=== PATIENT | female | born 1980 | race Caucasian/White ===

== ENCOUNTER 2023-04-13 20:08 | Emergency (ER) | payer OTHER, SELFPAY ==
[2023-04-13 20:21] VITALS: BP 118/82; PULSE 84; RESP 16; TEMP 36.4; O2SAT 95; BMI 31.3
--- NOTE | 2023-04-13 20:32 | ED_ITS ---
HPI - General Adult General Chief complaint: GI Bleed Stated complaint: BM straight blood. feels unwell Time Seen by Provider: 04/13/23 20:11 History of Present Illness HPI narrative: Patient here after having bright red blood/diarrhea stool about an hour ago. Feels nauseated, foggy, lightheaded. Had colonoscopy in May 2022 and polyps removed at that time as well as in July 2022 per her report. 43-year-old woman presenting to the emergency department with concern of bright red blood per rectum. Admittedly has been having unknown settled abdomen/stomach over the course the day. Is feeling a little bit nauseated. This evening about an hour and half prior to arrival just suddenly had to go the bathroom. Head diarrheal bowel movement and noticed a lot of blood in the toilet bowl. No clots noted. Does not know if she has hemorrhoids. Primary complaint at this point is sense of fullness in the low abdomen and nausea. Also feeling little lightheaded. Did have a colonoscopy, screening, May of 2022 with polypectomy. Apparently benign. No travel though apparently to [facility] in [place] about a month ago. Past medical/surgical includes 2 C sections. Related Data Home Medications Medication Instructions Recorded Confirmed fluoxetine 20 mg capsule 20 mg PO DAILY 10/25/22 10/25/22 Allergies Allergy/AdvReac Type Severity Reaction Status Date / Time latex Allergy Unknown Verified 02/07/23 11:26 Milk Containing Products AdvReac Intermediate Verified 04/13/23 20:26 (Dairy) Review of Systems Status of ROS: Reports: 6 or more systems reviewed and unremarkable except as noted in History and below PFSH PFS Medical History Chronic neck pain (08/08/12) ?M54.2 - Cervicalgia (ICD-10) ?G89.29 - Other chronic pain (ICD-10) Surgical History History of endometrial ablation ?Z98.890 - Other specified postprocedural states (ICD-10) Hx of section ?Z98.891 - History of uterine scar from previous surgery (ICD-10) Social History Smoking Status: Never smoker Non-prescribed substance use: denies use Exam Narrative: Exam Narrative: Pleasant. Looks is a feels a little uncomfortable. Brow is furrowed in discomfort. She is breathing easily. Oropharynx is moist. Lungs appear to be clear. Heart in regular rate and rhythm without murmur or gallop. Abdomen present but diminished bowel sounds. She is not tympanitic to palpation of the abdomen. Abdomen is soft. No masses appreciated. Uncomfortable though not with significant pain to palpation across the low abdomen/suprapubic area. Seems full here. She is well-perfused peripherally. Extremities are without edema. Returns security strategist for anoscopy exam. Anal tissue demonstrates small non thrombosed hemorrhoidal tissue at 6p. Placement of anoscope does not show active bleeding though some mildly inflamed would look to be internal hemorrhoidal tissue. Trace amount of light brown stool at the end of the anoscope. Const: Vital Signs, click to edit/add: Vital Signs - 24 hr 04/13/23 20:21 04/13/23 23:28 Temperature 97.6 F 97.6 F Pulse Rate [Right Pulse Oximeter] 84 84 Respiratory Rate 16 16 Blood Pressure [Ri ght Upper Arm] 118/82 105/64 Pulse Oximetry 95 96 Oxygen Delivery Me thod Room Air Documenting provider has reviewed patient's vital signs: yes Course Vital Signs Vital signs: Initial Vital Signs Temperature 97.6 F 04/13/23 20:21 Temperature Source Temporal Artery Scan 04/13/23 20:21 Pulse Rate 84 04/13/23 20:21 Pulse Rhythm Regular 04/13/23 20:21 Respiratory Rate 16 04/13/23 20:21 Blood Pressure 118/82 04/13/23 20:21 Blood Pressure Mean 94 04/13/23 20:21 Blood Pressure Position Sitting 04/13/23 20:21 Pulse Oximetry 95 04/13/23 20:21 Oxygen Delivery Method Room Air 04/13/23 20:21 Vital Signs Temperature 97.6 F 04/13/23 20:21 Pulse Rate 84 04/13/23 20:21 Respiratory Rate 16 04/13/23 20:21 Blood Pressure 118/82 04/13/23 20:21 Pulse Oximetry 95 04/13/23 20:21 Oxygen Delivery Method Room Air 04/13/23 20:21 Temperature 97.6 F 04/13/23 23:28 Pulse Rate 84 04/13/23 23:28 Respiratory Rate 16 04/13/23 23:28 Blood Pressure 105/64 04/13/23 23:28 Pulse Oximetry 96 04/13/23 23:28 Oxygen Delivery Method Room Air 04/13/23 20:21 Medications Administered Medications: Discontinued Medications Generic Name Dose Route Start Last Admin Trade Name Jose Elias PRN Reason Stop Dose Admin Sodium Chloride 1,000 mls @ 1,000 mls/hr 04/13/23 20:52 04/13/23 22:37 0.9 % Sodium Chloride 1000 Ml IV 04/13/23 21:51 Infused .Q1H ONE Infusion Metoclopramide HCl 10 mg/ 102 mls @ 306 mls/hr 04/13/23 20:52 04/13/23 21:59 Sodium Chloride IVPB 04/13/23 20:53 Infused ONCE ONE Infusion Medical Decision Making MDM Narrative Medical decision making narrative: This may be an evolving colitis. Her discomfort and nausea is concerning for repeat episode. Possible diverticulitis. Do not see colonoscopy report at this time. Possible in internal hemorrhoids had bled and now temporarily resolved. Urinary retention? IV will be established. Notes worsening nausea typically with Zofran says given Reglan piggyback. IV fluids. Anticipate monitoring for repeat hemoglobin. Check baseline labs. Clarified later that following May 2022 colonoscopy, did have thrombosed hemorrhoid and had excision done in July 2022. Labs ultimately were reassuring. Minimal elevation of transaminases which I might attribute to evolving ?stomach bug? or hepatic steatosis? CT abdomen and pelvis reviewed by me, without acute abnormalities. Radiology read noting it to be unremarkable. ?Tiny fat containing umbilical hernia? Overall she was improved. No further bleeding events. See patient discharge plan Medical Records Medical records reviewed: Yes I reviewed the patient's medical records Lab Data Lab results reviewed: Yes I reviewed the patient's lab results Labs: Lab Results 04/13/23 04/13/23 04/13/23 Range/Units 19:28 19:28 19:28 WBC 5.83 (4.50-11.00) K/uL RBC 4.91 (4.00-5.20) m/uL Hgb 14.1 (12.0-16.0) gm/dL Hct 41.6 (33.0-51.0) % MCV 85 (80-100) fL MCH 29 (26-34) pg MCHC 34 (32-36) gm/dL RDW Coeff of Mahesh 12.1 (11.5-15.5) % Plt Count 273 (140-440) K/uL Neut % (Auto) 53.9 (42.0-72.0) % Lymph % (Auto) 35.5 (20-44) % [place] % (Auto) 6.3 (0.0-11.0) % Eos % (Auto) 3.8 (0.0-7.0) % Baso % (Auto) 0.3 (0.0-3.0) % Neut # (Auto) 3.14 (1.7-7.0) K/uL Lymph # (Auto) 2.07 (0.90-2.90) K/uL [place] # (Auto) 0.40 (0.00-0.90) K/UL Eos # (Auto) 0.22 (0.00-0.50) K/uL Baso # (Auto) 0.02 (0.00-0.30) K/uL Abs Immat Gran (auto) 0.01 (0.00-0.30) K/uL Imm/Tot Granulo (auto) 0.2 % Sodium 140 (135-149) mmol/L Potassium 3.5 L (3.6-5.1) mmol/L Chloride 106 (96-114) mmol/L Carbon Dioxide 24 (20-32) mmol/L Anion Gap 10 (7-15) mEq/L BUN 10 (5-24) mg/dL Creatinine 0.7 (0.5-1.5) mg/dL Estimated Creat Clear 102.85 Estimated GFR 111 ml/min Glucose 83 (60-115) mg/dL Calcium 9.5 (8.4-10.6) mg/dL Total Bilirubin 0.4 Cancelled (0.1-1.5) mg/dL Direct Bilirubin 0.0 Cancelled (0.0-0.5) mg/dL AST 37 H (12-35) U/L ALT (4-35) U/L Alkaline Phosphatase (40-150) U/L C-Reactive Protein (0.5-1.0) mg/dL Total Protein (6.0-8.3) g/dL Albumin (3.3-5.0) g/dL HCG, Qual (Negative) Urine Color (Yellow) Urine Appearance (Clear) Urine pH (5.0-8.5) Ur Specific [place] (1.000-1.030) Urine Protein (Negative) Urine Glucose (UA) (Negative) Urine Ketones (Negative) Urine Blood (Negative) Urine Nitrite (Negative) Urine Bilirubin (Negative) Urine Urobilinogen (0.2-1.0) Ur Leukocyte Esterase (Negative) Urine RBC (0-2) Urine WBC (0-5) Ur Squamous Epith Cells (None-Few) Urine Bacteria (None) 04/13/23 04/13/23 04/13/23 Range/Units 19:28 19:28 19:28 WBC (4.50-11.00) K/uL RBC (4.00-5.20) m/uL Hgb (12.0-16.0) gm/dL Hct (33.0-51.0) % MCV (80-100) fL MCH (26-34) pg MCHC (32-36) gm/dL RDW Coeff of Mahesh (11.5-15.5) % Plt Count (140-440) K/uL Neut % (Auto) (42.0-72.0) % Lymph % (Auto) (20-44) % [place] % (Auto) (0.0-11.0) % Eos % (Auto) (0.0-7.0) % Baso % (Auto) (0.0-3.0) % Neut # (Auto) (1.7-7.0) K/uL Lymph # (Auto) (0.90-2.90) K/uL [place] # (Auto) (0.00-0.90) K/UL Eos # (Auto) (0.00-0.50) K/uL Baso # (Auto) (0.00-0.30) K/uL Abs Immat Gran (auto) (0.00-0.30) K/uL Imm/Tot Granulo (auto) % Sodium (135-149) mmol/L Potassium (3.6-5.1) mmol/L Chloride (96-114) mmol/L Carbon Dioxide (20-32) mmol/L Anion Gap (7-15) mEq/L BUN (5-24) mg/dL Creatinine (0.5-1.5) mg/dL Estimated Creat Clear Estimated GFR ml/min Glucose (60-115) mg/dL Calcium (8.4-10.6) mg/dL Total Bilirubin (0.1-1.5) mg/dL Direct Bilirubin (0.0-0.5) mg/dL AST Cancelled (12-35) U/L ALT 37 H Cancelled (4-35) U/L Alkaline Phosphatase 60 Cancelled (40-150) U/L C-Reactive Protein < 0.5 L (0.5-1.0) mg/dL Total Protein 7.7 (6.0-8.3) g/dL Albumin (3.3-5.0) g/dL HCG, Qual (Negative) Urine Color (Yellow) Urine Appearance (Clear) Urine pH (5.0-8.5) Ur Specific [place] (1.000-1.030) Urine Protein (Negative) Urine Glucose (UA) (Negative) Urine Ketones (Negative) Urine Blood (Negative) Urine Nitrite (Negative) Urine Bilirubin (Negative) Urine Urobilinogen (0.2-1.0) Ur Leukocyte Esterase (Negative) Urine RBC (0-2) Urine WBC (0-5) Ur Squamous Epith Cells (None-Few) Urine Bacteria (None) 04/13/23 04/13/23 04/14/23 Range/Units 19:28 19:28 00:02 WBC (4.50-11.00) K/uL RBC (4.00-5.20) m/uL Hgb (12.0-16.0) gm/dL Hct (33.0-51.0) % MCV (80-100) fL MCH (26-34) pg MCHC (32-36) gm/dL RDW Coeff of Mahesh (11.5-15.5) % Plt Count (140-440) K/uL Neut % (Auto) (42.0-72.0) % Lymph % (Auto) (20-44) % [place] % (Auto) (0.0-11.0) % Eos % (Auto) (0.0-7.0) % Baso % (Auto) (0.0-3.0) % Neut # (Auto) (1.7-7.0) K/uL Lymph # (Auto) (0.90-2.90) K/uL [place] # (Auto) (0.00-0.90) K/UL Eos # (Auto) (0.00-0.50) K/uL Baso # (Auto) (0.00-0.30) K/uL Abs Immat Gran (auto) (0.00-0.30) K/uL Imm/Tot Granulo (auto) % Sodium (135-149) mmol/L Potassium (3.6-5.1) mmol/L Chloride (96-114) mmol/L Carbon Dioxide (20-32) mmol/L Anion Gap (7-15) mEq/L BUN (5-24) mg/dL Creatinine (0.5-1.5) mg/dL Estimated Creat Clear Estimated GFR ml/min Glucose (60-115) mg/dL Calcium (8.4-10.6) mg/dL Total Bilirubin (0.1-1.5) mg/dL Direct Bilirubin (0.0-0.5) mg/dL AST (12-35) U/L ALT (4-35) U/L Alkaline Phosphatase (40-150) U/L C-Reactive Protein (0.5-1.0) mg/dL Total Protein Cancelled (6.0-8.3) g/dL Albumin 4.5 Cancelled (3.3-5.0) g/dL HCG, Qual Negative (Negative) Urine Color Yellow (Yellow) Urine Appearance Clear (Clear) Urine pH 6.5 (5.0-8.5) Ur Specific [place] 1.015 (1.000-1.030) Urine Protein Negative (Negative) Urine Glucose (UA) Negative (Negative) Urine Ketones Negative (Negative) Urine Blood Negative (Negative) Urine Nitrite Negative (Negative) Urine Bilirubin Negative (Negative) Urine Urobilinogen 0.2 (0.2-1.0) Ur Leukocyte Esterase Negative (Negative) Urine RBC 0-2 (0-2) Urine WBC 0-2 (0-5) Ur Squamous Epith Cells Few (None-Few) Urine Bacteria Few A (None) Discharge Plan Discharge Clinical Impression: Diarrhea, Internal hemorrhoids, Abdominal discomfort, Bright red blood per rectum Patient Disposition: Home, Self-Care Condition: Improved Additional Instructions: I'm happy you are feeling better. Consider slow advance of diet over the next 24-36 hours. Diluted juices, soup broth, rice, toast, crackers. Your transaminases (liver enzymes) were only barely elevated. Your pain was not in the area of your liver or gallbladder however. These can go up in the setting of stomach bugs or even a glass of wine the night before. Return for increasing blood/bleeding particularly associated with clots, marked increase in abdominal pain, associated fever. Prescriptions: No Action fluoxetine 20 mg capsule 20 mg PO DAILY Follow Up/Referrals: Provider,Not a Local [Primary Care Provider] - Stand Alone Forms: [facility] Info Instructions
--- NOTE | 2023-04-13 21:14 | CRLHL7_ITS ---
For Patients: As a result of the Century Cures Act, medical imaging exams and procedure reports are released immediately into your electronic medical record. You may view this report before your referring provider. If you have questions, please contact your health care provider. INDICATION: Rectal bleeding, diarrhea. TECHNIQUE: CT abdomen and pelvis acquired with 100 cc Omnipaque 350 IV contrast. COMPARISON: None. FINDINGS: Lower chest: Scattered atelectasis. Liver: Unremarkable. Normal in size and attenuation. No suspicious masses. Gallbladder and bile ducts: Unremarkable. No stones or inflammation. No biliary dilatation. Pancreas: Unremarkable. No mass or inflammation. Spleen: Unremarkable. Normal in size. No masses. Adrenal glands: Unremarkable. No nodules. Kidneys: Unremarkable. No suspicious masses, stones, or hydronephrosis. GI tract: Unremarkable. Normal in caliber. No sign of mass or inflammation. Normal appendix. Vasculature: Abdominal aorta is normal in caliber. Mesenteric arteries are patent. Lymph nodes: No lymphadenopathy. Peritoneum/Abdominal Wall: Tiny fat containing umbilical hernia. No sign of mass or infiltration. No free air or significant free fluid. Pelvis: Unremarkable. Bones: Unremarkable for age. IMPRESSION: No acute intra-abdominal/pelvic abnormality. Please note that all CT scans at this facility use dose modulation, iterative reconstruction, and/or weight-based dosing when appropriate to reduce radiation dose to as low as reasonably achievable. Dictated by Armand Sanchez MD @ 04/13/2023 11:30:16 PM (Electronically Signed)
[2023-04-13] MEDS: 0.9 % SODIUM CHLORIDE 1000 ml 1,000 ML IV (21:30)
[2023-04-13 21:34] LABS: Basophils Absolute Auto 0.02 K/uL (0.00-0.30); Basophils Percent Auto 0.3 % (0.0-3.0); Eosinophils Absolute Auto 0.22 K/uL (0.00-0.50); Eosinophils Percent Auto 3.8 % (0.0-7.0); Hematocrit 41.6 % (33.0-51.0); Hemoglobin* 14.1 gm/dL (12.0-16.0); Immature Granulocytes Abs Auto 0.01 K/uL (0.00-0.30); Immature Granulocytes Pct Auto 0.2 %; Lymphocytes Absolute Auto 2.07 K/uL (0.90-2.90); Lymphocytes Percent Auto 35.5 % (20-44); Mean Corpuscular HGB Conc 34 gm/dL (32-36); Mean Corpuscular Hemoglobin 29 pg (26-34); Mean Corpuscular Volume 85 fL (80-100); Monocytes Percent Auto 6.3 % (0.0-11.0); Neutrophils Absolute Auto 3.14 K/uL (1.7-7.0); Neutrophils Percent Auto 53.9 % (42.0-72.0); Platelet Count* 273 K/uL (140-440); RDW Coefficient of Variation % 12.1 % (11.5-15.5); Red Blood Count 4.91 m/uL (4.00-5.20); White Blood Count* 5.83 K/uL (4.50-11.00)
[2023-04-13] MEDS: METOCLOPRAMIDE HCL 10 MG in 0.9 % SODIUM CHLORIDE 100 ml 100 ML 306 MG IVPB (21:40)
[2023-04-13 21:43] LABS: Slide Review Reflex No
[2023-04-13 21:53] LABS: Albumin* 4.5 g/dL (3.3-5.0); Chloride* 106 mmol/L (96-114)
[2023-04-13 21:54] LABS: Potassium* 3.5 mmol/L (3.6-5.1); Sodium* 140 mmol/L (135-149)
[2023-04-13 21:56] LABS: Creatinine* 0.7 mg/dL (0.5-1.5); Est. Creatinine Clearance* 102.85; Estimated Glomerular Filt Rate 111 ml/min
[2023-04-13 21:57] LABS: Alanine Aminotransferase* 37 U/L (4-35); Alkaline Phosphatase* 60 U/L (40-150); Anion Gap 10 mEq/L (7-15); Aspartate Amino Transferase* 37 U/L (12-35); Bilirubin Total* 0.4 mg/dL (0.1-1.5); Blood Urea Nitrogen* 10 mg/dL (5-24); Calcium* 9.5 mg/dL (8.4-10.6); Carbon Dioxide* 24 mmol/L (20-32); Glucose* 83 mg/dL (60-115); Total Protein* 7.7 g/dL (6.0-8.3)
[2023-04-13 22:09] LABS: C Reactive Protein* < 0.5 mg/dL (0.5-1.0)
[2023-04-13 22:13] LABS: HCG Qualitative Serum* Negative (Negative)
[2023-04-13 23:28] VITALS: BP 105/64; PULSE 84; RESP 16; TEMP 36.4; O2SAT 96
[2023-04-14 00:10] LABS: Appearance Urine Clear (Clear); Bilirubin Urine Negative (Negative); Blood Urine Negative (Negative); Color Urine Yellow (Yellow); Glucose Urine Negative (Negative); Ketones Urine Negative (Negative); Leukocyte Esterase Urine Negative (Negative); Nitrite Urine Negative (Negative); Protein Urine Negative (Negative); Specific Gravity Urine 1.015 (1.000-1.030); Urobilinogen Urine 0.2 (0.2-1.0); pH Urine 6.5 (5.0-8.5)
[2023-04-14 00:21] LABS: Bacteria Urine Few; RBC Urine 0-2 (0-2); Squamous Epithelial Cell Urine Few (None-Few); WBC Urine 0-2 (0-5)
== END 2023-04-14 00:37 | disposition home or self-care (01) ==
PROVIDERS: Emergency Provider Family Medicine
DX: R19.7 Diarrhea, unspecified (principal); K64.8 Other hemorrhoids; R10.9 Unspecified abdominal pain; K62.5 Hemorrhage of anus and rectum
CPT/HCPCS: 36415; 51798; 74177; 80048; 80076; 81001; 84703; 85025; 86140; 87086; 96365; 99284; 99285; J2765; J7030; Q9967

== ENCOUNTER 2024-07-20 21:43 | Emergency (ER) | payer BC, SELFPAY ==
--- OUTSIDE RECORDS SUMMARY | 2024-07-20 21:45 | XMS_ITS | Clinical Summary ---
Author Organization [facility] Address [address] [place] [address] Care Team Providers Care Wheel Assembler Name Role Phone Unavailable Primary Care Provider Unavailabl e Source Comments Patient records contain information from all sites at [facility]. For routine questions regarding patient records, call [phone] during business hours, M-F 8:00 AM - 5:00 PM Central Time. Record requests for emergency care only can be directed to [phone] at any time.[facility] Allergies Active Allergy Reactions Criticality Noted Date Comments Latex Itching,Rash Low 03/17/2011 Medications FLUoxetine (PROzac) 40 mg capsule Take 40 mg by mouth daily. Active Active Problems Problem Noted Date Diagnosed Date Hemorrhoids 06/29/2023 Social History Tobacco Use Types Packs/Day Years Used Date Smoking Tobacco: Never Smokeless Tobacco: Never Tobacco Cessation:Counseling Given: Not Answered [facility] Utilities Answer Date Recorded In the past 12 months has [facility] Local Dirt, gas, oil, or water [employer] threatened to shut off services in your home? No 06/27/2023 Exercise Vital Sign Answer Date Recorde d On average, how many days pe r week do you engage in moderate to strenuous exercise (like a brisk walk)? 5 days 06/27/2023 On average, how many minutes do you engage in exercise at this level? 30 min 06/27/2023 Hunger Vital Sign Answer Date Recorded Within the past 12 months, y ou worried that your food would run out before you got the money to buy more. Never true 06/27/19 24 Within the past 12 months, t he food you bought just didn't last and you didn't have money to get more. Never true 06/27/2023 PRAPARE - Transportation Answer Date Re corded In the past 12 months, has l ack of transportation kept you from medical appointments or from getting medications? No 06/08 In the past 12 months, has l ack of transportation kept you from meetings, work, or from getting things needed for daily living? No 06/27/2023 Nutrition Answer Date Recorded Nutrition: EVOO Fat Source Unknown 06/27 On average, how many serving s of fruits and vegetables do you eat per day (serving size is equal to 1 cup or approximately the size of a tennis ball)? 3-5 06/27/2023 Dental Answer Date Recorded Dental: Regular Dentist Yes 06/27/19 Employment Answer Date Recorded Employment status Employed and actively working without restrictions 06/27/2023 Housing Stability Answer Date Recorded What is your living situation today? I have a [facility] place to live 06/27/2023 Comments Unknown Sex and Gender Information Value Date Recorded Sex Assigned at Female 06/27/2023 10:37 PM EPIC CADENCE ANALYST Legal Sex Female 11:49 PM EPIC CADENCE ANALYST Gender Identity Female 06/27/2023 10:37 PM EPIC CADENCE ANALYST Sexual Orientation Straight 06/27/2023 10 :37 PM EPIC CADENCE ANALYST Last Filed Vital Signs Vital Sign Reading Time Taken Comments Blood Pressure 120/83 06/28/2023 10:24 AM EPIC CADENCE ANALYST Pulse 86 06/28/2023 10:24 AM EPIC CADENCE ANALYST Temperature 36.3 C (97.3 F) 06/28/2023 10:24 AM EPIC CADENCE ANALYST Respiratory Rate - - Oxygen Saturation - - Inhaled Oxygen Concentration - - Weight 91.2 kg (201 lb 1 oz) 06/28/2023 10:24 AM EPIC CADENCE ANALYST Height 171.4 cm (5' 7.48) 06/28/2023 10:[address] Body Mass Index 31.04 06/28/2023 10:24 AM EPIC CADENCE ANALYST Plan of Treatment Health Maintenance Due Date Last Done Comments Cervical/Vaginal Cancer Screening 1982 HIV Screening 1982 Hepatitis C Screening 1982 Lipid (Cholesterol) Screening 1982 Hepatitis B Vaccines (1 of 3 - 19+ 3-dose series) 2001 Mammogram 04/03/2016 04/03/2015 DTaP,Tdap,and Td Vaccines (3 - Td or Tdap) 11/11/2022 11/11/2012, 03/20/2011 COVID-19 Vaccine (3 - 2023-2 5 season) 2024 04/07/2021, 03/08/2021 Influenza Vaccine (#1) 2024 8, 06/11/2017, 03/03/2013 Depression Screening (Annual PHQ-2) 06/07/2024 HPV Vaccines Aged Out No longer eligi ble based on patient's age to complete this topic IPV Vaccines Aged Out No longer eligi ble based on patient's age to complete this topic Pneumococcal vaccine (0-49 years) Aged Out No longer eligible b ased on patient's age to complete this topic Insurance [place] [id number]
--- OUTSIDE RECORDS SUMMARY | 2024-07-20 21:45 | XMS_ITS | Encounter Summary ---
Author Organization [facility] Address [address] [place] [id number] Phone Care Team Providers Care Network Communications Engineer Name Role Phone Unavailable Primary Care Provider Unavailabl e Reason for Referral * Ancillary Services (Urgent) - Closed Specialty Diagnoses / Procedures Referred By Contac ashley Referred To Contact Radiology Diagnoses Acute cough Procedures XR CHEST 2 VIEWS Ken Ragsdale PA-C [address] [place] [id number] Phone: tel: fax: Referral ID Status Reason Start Date Expiration Date Visits Re quested Visits Authorized [id number] Closed 07/01/2024 09/29/[address] ORIENTED DEVELOPER Reason for Visit * Ancillary Services (Urgent) - Closed Specialty Diagnoses / Procedures Referred By Isidra ramirez Referred To Contact Radiology Diagnoses Acute cough Procedures XR CHEST 2 VIEWS Ken Ragsdale PA-C [address] [place] [id number] Phone: tel: fax: Referral ID Status Reason Start Date Expiration Date Visits Re quested Visits Authorized [id number] Closed 07/01/2024 09/29/2025 1 1 Encounter Details Date Type Department Care Team (Latest Contact Info) Description 07/01/2024 1:27 PM OBJECT ORIENTED DEVELOPER - 07/01/2024 11:59 PM OBJECT ORIENTED DEVELOPER Hospital Encounter [facility] RADIOLOGY [address] [place] [phone] Ken Ragsdale PA-C [address] [place] [phone] Acute cough Discharge Disposition: Discharged Social History Tobacco Use Types Packs/Day Years Used Date Smoking Tobacco: Never Smokeless Tobacco: Never PHQ-2 Answer Date Recorded PHQ-2 Total 0 07/01/2024 Comments Unknown Sex and Gender Information Value Date Recorded Sex Assigned at Not on file Legal Sex Female 12:08 PM OBJECT ORIENTED DEVELOPER Gender Identity Not on file Sexual Orientation Not on file documented as of this encounter Medications at Time of Discharge FLUoxetine (PROzac) 40 MG capsule Take 40 mg by mouth one time a day. amoxicillin-clav ulanate (AUGMENTIN) 875-125 MG oral tabletIndication s:Infection Take 1 Tablet by mouth two times a day with meals for 7 days. Indications: Infection 14 Tablet 07/01/2024 documented as of this encounter Discharge Disposition Disposition Code Departure Means Destination Discharged documented in this encounter Plan of Treatment Not on file documented as of this encounter Procedures Procedure Name Priority Date/Time Associated Diagnosis Comments XR CHEST 2 VIEWS STAT 07/01/2024 1:47 PM OBJECT ORIENTED DEVELOPER Acute cough documented in this encounter Results * XR CHEST 2 VIEWS (07/01/2024 1:47 PM OBJECT ORIENTED DEVELOPER) Anatomical Region Laterality Modality Chest Radiographic Kirstne ging 07/01/2024 1:47 PM OBJECT ORIENTED DEVELOPER Narrative 07/01/2024 2:22 PM OBJECT ORIENTED DEVELOPER This document is currently in Final Status Exam XR CHEST 2 VIEWS HISTORY: cough; FINDINGS: Heart size is normal. Lungs are clear. Electronically Signed: Fred Frost MD 07/01/2024 2:22 PM Procedure Note Fred Frost MD - 07/01/2024 This document is currently in Final Status Exam XR CHEST 2 VIEWS HISTORY: cough; FINDINGS: Heart size is normal. Lungs are clear. Electronically Signed: Fred Frost MD 07/01/2024 2:22 PM Ken Ragsdale PA-C DIAGNOSTIC IMAGING [facility] Final Result documented in this encounter Visit Diagnoses Diagnosis Acute cough documented in this encounter
--- OUTSIDE RECORDS SUMMARY | 2024-07-20 21:45 | XMS_ITS | Clinical Summary ---
Author Organization [facility] Address [address] [address] Phone Care Team Providers Care Flake [employer] Name Role Phone Unavailable Primary Care Provider Unavailabl e Allergies Active Allergy Reactions Criticality Noted Date Comments Latex Pruritis,RASH Medium 03/17/2011 Prednisone Hives High 07/01/2024 Medications FLUoxetine (PROzac) 40 MG capsule Take 40 mg by mouth one time a day. Active amoxicillin-cla vulanate (AUGMENTIN) 875-125 MG oral tabletIndicatio ns:Infection Take 1 Tablet by mouth two times a day with meals for 7 days. Indications: Infection 14 Tablet 07/08/19 Active Problems No known active problems Encounters Date Type Department Care Team Description 07/01/2024 1:27 PM SEMICONDUCTOR ASSEMBLER - 07/01/2024 11:59 PM SEMICONDUCTOR ASSEMBLER Hospital Encounter [facility] [address] [place] [phone] Ken Ragsdale PA-C Acute cough Discharge Disposition: Discharged 07/01/2024 12:20 PM SEMICONDUCTOR ASSEMBLER Office Visit [facility] [address] [place] [phone] Ken Ragsdale PA-C Acute cough (Primary Dx) 07/01/2024 Travel from Last 3 Months Social History Tobacco Use Types Packs/Day Years Used Date Smoking Tobacco: Never Smokeless Tobacco: Never Tobacco Cessation:Counseling Given: Not Answered PHQ-2 Answer Date Recorded PHQ-2 Total 0 07/01/2024 Comments Unknown Sex and Gender Information Value Date Recorded Sex Assigned at Not on file Legal Sex Female 12:08 PM SEMICONDUCTOR ASSEMBLER Gender Identity Not on file Sexual Orientation Not on file Obstetrics History Last Filed Vital Signs Vital Sign Reading Time Taken Comments Blood Pressure 112/70 07/01/2024 12:40 PM SEMICONDUCTOR ASSEMBLER Pulse 78 07/01/2024 12:40 PM SEMICONDUCTOR ASSEMBLER Temperature 37.2 C (98.9 F) 07/01/2024 12:40 PM SEMICONDUCTOR ASSEMBLER Respiratory Rate 16 07/01/2024 12:40 PM SEMICONDUCTOR ASSEMBLER Oxygen Saturation 98% 07/01/2024 12:40 PM SEMICONDUCTOR ASSEMBLER Inhaled Oxygen Concentration - - Weight 88.7 kg (195 lb 8.8 oz) 07/01/2024 12:40 PM SEMICONDUCTOR ASSEMBLER Height - - Body Mass Index - - Plan of Treatment Health Maintenance Due Date Last Done Comments Cervical Cancer Screening 1982 Last pap w/ HPV Testing 1982 Last pap w/o HPV Testing 1982 MAMMO,SCREEN 1982 Hepatitis B Vaccine (Standin g Order) (1 of 3 - 19+ 3-dose series) 2001 PERTUSSIS (Standing Order) 2001 TETANUS (Standing Order) 2001 COVID-19 Vaccine (2023-2 5 season) 2024 Influenza Vaccine Seasonal (Standing Order) (#1) 2024 HPV Vaccine (Standing Order) Aged Out No longer eligible based on patient's age to complete this topic Pneumococcal/PCV20 Vaccine: Pediatrics (2-5 yrs) and At-Risk Patients (6-49 yrs) (Standing Order) Aged Out No longer eligible b ased on patient's age to complete this topic Procedures Procedure Name Priority Date/Time Associated Diagnosis Comments XR CHEST 2 VIEWS STAT 07/01/2024 1:47 PM SEMICONDUCTOR ASSEMBLER Acute cough STREP A, MOLECULAR DETECTION Routine 07/01/2024 1:33 PM SEMICONDUCTOR ASSEMBLER Acute cough from Last 3 Months Results * XR CHEST 2 VIEWS (07/01/2024 1:47 PM SEMICONDUCTOR ASSEMBLER) Anatomical Region Laterality Modality Chest Radiographic Kirsten ging 07/01/2024 1:47 PM SEMICONDUCTOR ASSEMBLER Narrative 07/01/2024 2:22 PM SEMICONDUCTOR ASSEMBLER This document is currently in Final Status [...] Fred Frost MD 07/01/2024 2:22 PM Ken NUNO DIAGNOSTIC IMAGING ORDE RABLES Final Result * STREP A, MOLECULAR DETECTION (07/01/2024 1:33 PM SEMICONDUCTOR ASSEMBLER) Streptococcus pyogenes (Group A Strep) Not Detected Not Detected 07/01/2024 2:06 PM SEMICONDUCTOR ASSEMBLER [facility] Swab STRUCTURE OF THROAT / Unknown Non-blood collection / Unknown 07/01/2024 1:33 PM SEMICONDUCTOR ASSEMBLER 07/01/2024 1:39 PM SEMICONDUCTOR ASSEMBLER Narrative [facility] - 07/01/2024 2:06 PM SEMICONDUCTOR ASSEMBLER Test results must be interpreted within the context of all relevant clinical and laboratory findings. Method Information This test uses the [employer]ep[employer] Xpert Xpress Strep A assay to detect Streptococcus pyogenes (Group A Beta-Hemolytic Streptococcus) DNA by real-time polymerase chain reaction (PCR) on the [employer] GeneXpert Instrument System. Ken NUNO MICROBIOLOGY - GENERAL ORDERABLES Final Result [facility] [address] [place] [address], [facility] from Last 3 Months Insurance BCBS OF [facility] Commercial Address: [facility] [address] [place] [address]
--- OUTSIDE RECORDS SUMMARY | 2024-07-20 21:45 | XMS_ITS | Clinical Summary ---
Author Organization [facility] Address [address] [place] [address] Care Team Providers Care Offset Machine Operator Name Role Phone Jaymie Burgos MD Primary Care Provider [phone] Allergies Active Allergy Reactions Criticality Noted Date Comments Latex Itching,Rash Low 03/17/2011 Medications Butalbital-APAP -Caffeine (FIORICET PO) Take 1-2 tablets by mouth every 4 hours as needed. Active VITAMINS PO Take 1 tablet by mouth. Active PREDNISONE PO Take 20 mg by mouth daily. 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) 01/23/2013 Labor and delivery, indication for care 12/26/19 13 S/P section 03/18/2011 Encounters Date Type Department Care Team Description 07/06/2024 8:15 AM AUTOMOTIVE BUYER - 07/06/2024 11:59 PM AUTOMOTIVE BUYER Hospital Encounter [facility] [address] [facility] [place] [phone] Vivian Cuevas, AGRONOMY ADVISOR MOLD CHANGER Pain of left breast Discharge Disposition: Home or Self Care 07/06/2024 8:13 AM AUTOMOTIVE BUYER - 07/06/2024 8:14 AM AUTOMOTIVE BUYER Hospital Encounter [facility] [address] [facility], [address] [place] [phone] Vivian Cuevas, AGRONOMY ADVISOR MOLD CHANGER Pain of left breast Discharge Disposition: Home or Self Care 07/06/2024 Travel 07/05/2024 Travel from Last 3 Months Immunizations Name Administration Dates Next Due TDAP (Adacel,Boostrix) 11/11/2012 TDAP Vaccine (Adacel) 03/20/2011 Social History Tobacco Use Types Packs/Day Years Used Date Smoking Tobacco: Never Alcohol Use Standard Drinks/Week Comments No 0 (1 standard drink = 0.6 oz pur e alcohol) Adolescent Education Answer Date Record ed Getting School Help Needed Not on file 02/26 Comments Unknown Sex and Gender Information Value Date Recorded Sex Assigned at Not on file Legal Sex Female 5:14 AM AUTOMOTIVE BUYER Gender Identity Not on file Sexual Orientation Not on file Last Filed Vital Signs Vital Sign Reading Time Taken Comments Blood Pressure 115/91 02/26/2022 8:50 PM CDT Pulse 65 02/26/2022 8:30 PM CDT Temperature 36.4 C (97.5 F) 02/26/2022 4:26 PM CDT Respiratory Rate 16 02/26/2022 7:00 PM CDT Oxygen Saturation 96% 02/26/2022 8:50 PM CDT Inhaled Oxygen Concentration - - Weight 96.2 kg (212 lb) 01/23/2013 6:15 AM CDT Height 170.2 cm (5' 7) 02/26/2022 4:26 PM CDT Body Mass Index 33.2 01/23/2013 6:15 AM CDT Plan of Treatment Health Maintenance Due Date Last Done Comments ADVANCE CARE PLANNING 1982 ANNUAL REVIEW OF HM ORDERS 1982 HIV SCREENING 1997 HEPATITIS B IMMUNIZATION (1 of 3 - 19+ 3-dose series) 2001 YEARLY PREVENTIVE VISIT 12/26/2020 12/27/2019 COVID-19 Vaccine (3 - Pfizer risk series) 05/05/2021 04/07/2021, 03/08/2021 LIPID 2022 DTAP/TDAP/TD IMMUNIZATION (3 - Td or Tdap) 11/11/2022 11/11/2012, 03/20/2011 PAP 12/26/2022 12/27/2019, 12/27/2019, 02/11/2007 INFLUENZA VACCINE (#1) 2024 8, 06/11/2017, 03/03/2013 PHQ-2 (once per calendar year) 2024 GLUCOSE 02/26/2025 02/26/2022, 01/26/2013 MAMMO SCREENING 07/06/2026 07/06/2024, 04/03/2015 ZOSTER IMMUNIZATION (1 of 2) 2032 HEPATITIS C SCREENING Completed 06/01/2003 HPV IMMUNIZATION Aged Out No longer e ligible based on patient's age to complete this topic MENINGITIS IMMUNIZATION Aged Out No l onger eligible based on patient's age to complete this topic Pneumococcal Vaccine: Pediatrics (0 to 5 Years) and At-Risk Patients (6 to 49 Years) Aged Out No longer eligible b ased on patient's age to complete this topic Procedures Procedure Name Priority Date/Time Associated Diagnosis Comments US BREAST LEFT LIMITED 1-3 QUADRANTS Routine 07/06/2024 8:51 AM AUTOMOTIVE BUYER Pain of left breast MA DIAGNOSTIC BILATERAL W/ RELL Routine 07/06/2024 8:39 AM AUTOMOTIVE BUYER Pain of left breast COMPREHENSIVE METABOLIC PANEL STAT 02/26/2022 4:32 PM CDT from Last 3 Months or Most Recently Relevant to Health Maintenance Results * US Breast Left (07/06/2024 8:51 AM AUTOMOTIVE BUYER) Anatomical Region Laterality Modality Breast Left Ultrasound Impressions 07/06/2024 9:13 AM AUTOMOTIVE BUYER IMPRESSION: BI-RADS CATEGORY: 1 - Negative. RECOMMENDED FOLLOW-UP: Routine yearly mammography beginning at age 40 or as discussed with your provider. Clinical follow-up is recommended, with management dependent on the results/findings of the physical examination. The results and recommendation were communicated to the patient at the conclusion of today's appointment. LORENA PARKER MD Narrative 07/06/2024 9:13 AM AUTOMOTIVE BUYER DIAGNOSTIC MAMMOGRAM, BILATERAL, DIGITAL w/CAD AND TOMOSYNTHESIS - 07/06/2024 8:39 AM ULTRASOUND LEFT BREAST HISTORY: Left breast pain. COMPARISON: Prior mammograms in 2014. BREAST DENSITY: The breasts are heterogeneously dense, which may obscure small masses. FINDINGS: No mammographic findings suspicious for malignancy. Targeted ultrasound evaluation of the left breast from 4:00 to 5:00 at the site of pain demonstrates no underlying sonographic abnormalities. Vivian Cuevas APRN, CNP [facility] US ORDERABLES Ed ited * MA Diagnostic Bilateral w/Rell (07/06/2024 8:39 AM AUTOMOTIVE BUYER) Anatomical Region Laterality Modality Breast Bilateral Mammography Impressions 07/06/2024 9:13 AM AUTOMOTIVE BUYER IMPRESSION: BI-RADS CATEGORY: 1 - Negative. RECOMMENDED FOLLOW-UP: Routine yearly mammography beginning at age 40 or as discussed with your provider. Clinical follow-up is recommended, with management dependent on the results/findings of the physical examination. The results and recommendation were communicated to the patient at the conclusion of today's appointment. LORENA PARKER MD Narrative 07/06/2024 9:13 AM AUTOMOTIVE BUYER DIAGNOSTIC MAMMOGRAM, BILATERAL, DIGITAL w/CAD AND TOMOSYNTHESIS - 07/06/2024 8:39 AM ULTRASOUND LEFT BREAST HISTORY: Left breast pain. COMPARISON: Prior mammograms in 2014. BREAST DENSITY: The breasts are heterogeneously dense, which may obscure small masses. FINDINGS: No mammographic findings suspicious for malignancy. Targeted ultrasound evaluation of the left breast from 4:00 to 5:00 at the site of pain demonstrates no underlying sonographic abnormalities. Vivian Cuevas APRN, CNP [facility] MAMMOGRAPHY ORDE FRIDALES Final Result * Comprehensive metabolic panel (02/26/2022 4:32 PM CDT) Sodium 137 133 - 144 mmol/L 02/26/2022 5:16 PM CDT LABORATORY Potassium 3.7 3.4 - 5.3 mmol/L 02/26/2022 5:16 PM CDT LABORATORY Chloride 107 94 - 109 mmol/L 02/26/2022 5:16 PM CDT LABORATORY Carbon Dioxide (CO2) 25 20 - 32 mmol/L 02/26/2022 5:16 PM CDT LABORATORY Anion Gap 5 3 - 14 mmol/L 02/26/2022 5:16 PM CDT LABORATORY Urea Nitrogen 9 7 - 30 mg/dL 02/26/2022 5:16 PM CDT LABORATORY Creatinine 0.61 0.52 - 1.04 mg/dL 02/26/2022 5:16 PM CDT LABORATORY Calcium 8.9 8.5 - 10.1 mg/dL 02/26/2022 5:16 PM CDT LABORATORY Glucose 99 70 - 99 mg/dL 02/26/2022 5:16 PM CDT LABORATORY Alkaline Phosphatase 52 40 - 150 U/L 02/26/2022 5:16 PM CDT LABORATORY AST 20 0 - 45 U/L 02/26/2022 5:16 PM CDT LABORATORY ALT 32 0 - 50 U/L 02/26/2022 5:16 PM CDT LABORATORY Protein Total 7.2 6.8 - 8.8 g/dL 02/26/2022 5:16 PM CDT LABORATORY Albumin 3.6 3.4 - 5.0 g/dL 02/26/2022 5:16 PM T LABORATORY Bilirubin Total 0.8 0.2 - 1.3 mg/dL 02/26/2022 5:16 PM T LABORATORY GFR Estimate >90 >60 mL/min/1.7 3m2 02/26/2022 5:16 PM [facility] Comment:Effective May 082020 eGFRcr in adults is calculated using the 2020 CKD-EPI creatinine equation which includes age and gender (Linsey et al., NEJM, DOI: 10.1056/SFKIxc3467330) Blood STRUCTURE OF RIGHT UPPER LIMB / Unknown Venipuncture / Unknown 02/26/2022 4:32 PM CDT 02/26/2022 4:40 PM CDT us Paul Rivas PA-C LAB - BLOOD ORDERABLES Final Re sult LABORATORY [facility] [address], [address] [place] [phone], [facility] [phone] from Last 3 Months or Most Recently Relevant to Health Maintenance Insurance BCBS OUT OF STATE BCBS OUT OF STATE Care Teams Offset Machine Operator Relationship Specialty Start Date End Date Jaymie Burgos MD [address] [place] [address] PCP - General supervisor telephone information 03/10/11
--- OUTSIDE RECORDS SUMMARY | 2024-07-20 21:45 | XMS_ITS | Clinical Summary ---
Author Organization [facility] Address [place], [place] [address] Care Team Providers Care Street Light Servicer Supervisor Name Role Phone Pcp, No Primary Care Provider Unavailabl e Allergies Active Allergy Reactions Criticality Noted Date Comments Latex Rash 09/30/2012 Medications eletriptan (RELPAX) 40 mg tablet TAKE 1 TABLET BY MOUTH IF HEADACHE RETURNS MAY REPEAT IN 2 HOURS. NO MORE THAN 2 DOSES WITHIN 24 HRS 6 03/25/2017 Active escitalopram oxalate (LEXAPRO) 5 mg tablet Take 5 mg by mouth once daily. 07/05/2017 Active Active Problems No known active problems Family History Medical History Relation Name Comments Good Health Brother Good Health Father Good Health Mother Good Health Sister Relation Name Status Comments Brother Father Mother Sister Social History Tobacco Use Types Packs/Day Years Used Date Smoking Tobacco: Never Smokeless Tobacco: Never Tobacco Cessation:Counseling Given: Yes Alcohol Use Standard Drinks/Week Comments Yes 1.7 (1 standard drink = 0.6 oz p ure alcohol) occas Comments No Sex and Gender Information Value Date Recorded Sex Assigned at Not on file Legal Sex Female 5:19 AM ELECTRONIC DRAFTER Gender Identity Not on file Sexual Orientation Not on file Obstetrics History Para Term AB IAB SAB Ectopic Multiple Livin g Live Births 1 Date Outcome GA Total Labor Labor/2nd/3rd Weight Sex Type Anes PTL Mckenna A1 A5 Name Clin Last Filed Vital Signs Vital Sign Reading Time Taken Comments Blood Pressure 110/72 09/08/2017 5:48 PM CDT Pulse 78 09/08/2017 5:48 PM CDT Temperature 37.1 C (98.8 F) 09/08/2017 5:48 PM CDT Respiratory Rate - - Oxygen Saturation 97% 09/08/2017 5:48 PM CDT Inhaled Oxygen Concentration - - Weight 85.4 kg (188 lb 3.2 oz) 09/08/2017 5:48 P M CDT Height 170 cm (5' 6.93) 05/18/2017 9:55 AM ELECTRONIC DRAFTER Body Mass Index 29.54 05/18/2017 9:55 AM ELECTRONIC DRAFTER Plan of Treatment Health Maintenance Due Date Last Done Comments Tdap 1993 HIV for age 15-65 1997 Tetanus booster 2002 Pap test for age 21-65 02/11/2010 7, 01/13/2005 BMI (ht and wt on same day) for age 18+ 05/18/2018 05/18/2017 Depression screening for age 12+ 05/18/2018 05/18/2017 COVID-19 vaccine series (2023- season) 2024 Influenza for age 9-49 02/06/2024 Hepatitis C screening for ag e 18-79 Completed 06/01/2003 Pneumococcal series for age 6-49 Aged Out No longer eligible b ased on patient's age to complete this topic Procedures Procedure Name Priority Date/Time Associated Diagnosis Comments HOSIERY MENDER THIN PREP PAP SCREEN IMAGED Routine 02/11/2007 2:31 PM CDT Acute Pelvic Inflammatory Disease ANTI HCV Routine 06/01/2003 9:46 AM ELECTRONIC DRAFTER from Last 3 Months or Most Recently Relevant to Health Maintenance Results * HOSIERY MENDER THIN PREP PAP SCREEN IMAGED (02/11/2007 2:31 PM CDT) CYTOLOGY CYTOPATHOLOGY REPORT [facility] Status: Final Report [id number] CLINICAL INFORMATION LMP : 01/2007 Previous Pap Date : UNSURE Previous PAP Dx : Negative for intraepithelial lesion or malignancy. Previous Goodyear/bx date : NO Previous Colposcopy/Bx: None Hormone Usage : None Menstrual Status : Irregular Periods Goodyear/Bx done today : No HPV Request : Reflex HPV test if PAP Dx ASCUS SPECIMEN SOURCE : Cervical/vaginal ThinPrep Vial, screening SPECIMEN ADEQUACY : Satisfactory for evaluation Endocervical component present. INTERPRETATION/RES ULT: Negative for intraepithelial lesion or malignancy. Non-Neoplastic Findings Reactive cellular changes (includes inflammatory, reactive And/or reparative changes). Cytology 1st Screener : lgb Signed by: Caleb Saldana M.D. This specimen was screened by the FDA approved ThinPrep Imaging System and manually reviewed. NOTE: The Pap test is a screening technique, not a diagnostic procedure. It is used primarily to screen for squamous cancers and precursor lesions. Published studies have shown that it is subject to both false negative and false positive results. The pap test should not be used as the sole means to diagnose or exclude pre-malignant and malignant lesions. COLLECTED: 02/11/07 ACCESSIONED: 02/11/07 SIGNED: 02/22/07 Interpreted at [facility] Cervical (Cervical) 02/11/2007 2:31 PM CDT 02/11/2007 2:30 PM CDT us Paul Nam MD PATHOLOGY/CYTOLOGY Final Result Performing Organization Address City/State/[facility] Co de Phone Number [facility] INTERNAL ZIP [address] [place] [phone] * ANTI HCV (06/01/2003 9:46 AM ELECTRONIC DRAFTER) ANTI HCV Non-reactiv e 06/01/2003 9:46 AM ELECTRONIC DRAFTER Narrative 11/15/2003 1:41 AM CDT Ordered by an unspecified provider. us Other Clinical Staff SEND OUTS Final Resul t from Last 3 Months or Most Recently Relevant to Health Maintenance [place] [address] Light Servicer Supervisor Relationship Specialty Start Date End Date Pcp, No . PCP - General 06/04/10
--- OUTSIDE RECORDS SUMMARY | 2024-07-20 21:46 | XMS_ITS | Encounter Summary ---
Author Organization [facility] Address [address] [place] [address]. [place] [address] Care Team Providers Care Nutrition Services Aide Name Role Phone Jaymie Burgos MD Primary Care Provider [phone] Encounter Details Date Type Department Care Team (Latest Contact Info) Description 07/05/2024 Travel Social History Tobacco Use Types Packs/Day Years Used Date Smoking Tobacco: Never Alcohol Use Standard Drinks/Week Comments No 0 (1 standard drink = 0.6 oz pur e alcohol) Adolescent Education Answer Date Record ed Getting School Help Needed Not on file 02/26 Comments Unknown Sex and Gender Information Value Date Recorded Sex Assigned at Not on file Legal Sex Female 5:14 AM BRILLIANDEER LOOPER Gender Identity Not on file Sexual Orientation Not on file documented as of this encounter Plan of Treatment Not on file documented as of this encounter Visit Diagnoses Not on filedocumented in this encounter Care Teams Nutrition Services Aide Relationship Specialty Start Date End Date Jaymie Burgos MD [address] [facility] [address] [place] [address] PCP - General health care marketing specialist 03/10/11 documented as of this encounter
--- OUTSIDE RECORDS SUMMARY | 2024-07-20 21:46 | XMS_ITS | Encounter Summary ---
Author Organization [facility] Address [address] [address] Phone Care Team Providers Care Horticultural Farm Manager Name Role Phone Unavailable Primary Care Provider Unavailabl e Reason for Referral * Ancillary Services (Urgent) - Closed Specialty Diagnoses / Procedures Referred By Isidra ramirez Referred To Contact Radiology Diagnoses Acute cough Procedures XR CHEST 2 VIEWS Ken Ragsdale PA-C [address] [place] [address] Phone: tel: fax: Referral ID Status Reason Start Date Expiration Date Visits Re quested Visits Authorized [id number] Closed 07/01/2024 09/29/2025 1 1 EAR PROCESS ENGINEER Reason for Visit * Reason Comments Ear Problem Patient presents to the today for issues related to a possible ear infection. Left ear is bothering her and it has been ongoing for last couple days. Encounter Details Date Type Department Care Team ([facility] st Contact Info) Description 07/01/2024 12:20 PM NUCLEAR PROCESS ENGINEER Office Visit [facility] [address] [place] [phone] Ken Ragsdale PA-C [address] [place] [address] [phone] Acute cough (Primary Dx) Social History Tobacco Use Types Packs/Day Years Used Date Smoking Tobacco: Never Smokeless Tobacco: Never Tobacco Cessation:Counseling Given: Not Answered PHQ-2 Answer Date Recorded PHQ-2 Total 0 07/01/2024 Comments Unknown Sex and Gender Information Value Date Recorded Sex Assigned at Not on file Legal Sex Female 12:08 PM NUCLEAR PROCESS ENGINEER Gender Identity Not on file Sexual Orientation Not on file documented as of this encounter Last Filed Vital Signs Vital Sign Reading Time Taken Comments Blood Pressure 112/70 07/01/2024 12:40 PM NUCLEAR PROCESS ENGINEER Pulse 78 07/01/2024 12:40 PM NUCLEAR PROCESS ENGINEER Temperature 37.2 C (98.9 F) 07/01/2024 12:40 PM NUCLEAR PROCESS ENGINEER Respiratory Rate 16 07/01/2024 12:40 PM NUCLEAR PROCESS ENGINEER Oxygen Saturation 98% 07/01/2024 12:40 PM NUCLEAR PROCESS ENGINEER Inhaled Oxygen Concentration - - Weight 88.7 kg (195 lb 8.8 oz) 07/01/2024 12:40 PM NUCLEAR PROCESS ENGINEER Height - - Body Mass Index - - documented in this encounter Patient Instructions * Patient Instructions* Ken Ragsdale PA-C - 07/01/2024 12:20 PM NUCLEAR PROCESS ENGINEER If continued symptoms after a couple weeks or high fever will need repeat evaluation, sooner if worsening Follow up in 1 week if no improvement, sooner if worsening EAR PROCESS ENGINEER EAR PROCESS ENGINEER EAR PROCESS ENGINEER EAR PROCESS ENGINEER documented in this encounter Ordered Prescriptions Prescription Sig Dispense Quantity Refills Last Filled Start Date End Date amoxicillin-clavul anate (AUGMENTIN) 875-125 MG oral tabletIndications: Infection Take 1 Tablet by mouth two times a day with meals for 7 days. Indications: Infection 14 Tablet 07/01/2024 documented in this encounter Progress Notes * Ken Ragsdale PA-C - 07/01/2024 12:20 PM CST Chief Complaint Patient presents with Ear Problem Patient presents to the today for issues related to a possible ear infection. Left ear is bothering her and it has been ongoing for last couple days. History of Present Ilness Nettie Cher [place] is a(n) 44 year old presenting for chief complaint of left ear pain fullness. Reports no history of ear infections. Symptoms persistent since . Reports a chronic cough on going since before early May. Was diagnosed with pertussis, then influenza and has been coughing since. States no fevers. History reviewed. No pertinent past medical history. Current Outpatient Medications Medication Sig Dispense Refill FLUoxetine (PROzac) 40 MG capsule Take 40 mg by mouth one time a day. No current facility-administered medications for this visit. Allergies Allergen Reactions Prednisone Hives Latex Pruritis and RASH Review of Systems: See HPI for relevent ROS Physicial Exam: Vitals: 07/01/24 1240 BP: 112/70 Pulse: 78 Resp: 16 Temp: 37.2 ??C (98.9 ??F) TempSrc: Temporal SpO2: 98% Weight: 195 lb 8.8 oz (88.7 kg) Physical Exam General Appearance: alert, no acute distress Head: sinuses nontender Ears: Left TM with erythema, no bulging, right TM clear minimal erythema Oropharynx: clear, moist, symmetrical Neck: midline Lungs: clear to auscultation anteriorly and posteriorly Heart: regular rhythm, normal S1 and S2, no murmur ASSESSMENT: (R05.1) Acute cough (primary encounter diagnosis) PLAN: Orders Placed This Encounter Medications FLUoxetine (PROzac) 40 MG capsule CXR AOM treatment with Augmentin Follow up in 1 week if no improvement, sooner if worsening Discussed lower likely bray of atypical pneumonia, likely chronic cough from pertussis, if continued symptoms after a couple weeks or high fever will need repeat evaluation, sooner if worsening Social History Tobacco Use Smoking Status Never Smokeless Tobacco Never Patient Instructions If continued symptoms after a couple weeks or high fever will need repeat evaluation, sooner if worsening Follow up in 1 week if no improvement, sooner if worsening EAR PROCESS ENGINEER documented in this encounter Plan of Treatment Not on file documented as of this encounter Procedures Procedure Name Priority Date/Time Associated Diagnosis Comments STREP A, MOLECULAR DETECTION Routine 07/01/2024 1:33 PM NUCLEAR PROCESS ENGINEER Acute cough documented in this encounter Results * XR CHEST 2 VIEWS (07/01/2024 1:47 PM NUCLEAR PROCESS ENGINEER) Anatomical Region Laterality Modality Chest Radiographic Kirsten ging 07/01/2024 1:47 PM NUCLEAR PROCESS ENGINEER Narrative 07/01/2024 2:22 PM NUCLEAR PROCESS ENGINEER This document is currently in Final Status [...] 2:22 PM Ken NUNO DI[facility]NOSTIC [facility] Final Result * STREP A, MOLECULAR DETECTION (07/01/2024 1:33 PM NUCLEAR PROCESS ENGINEER) Streptococcus pyogenes (Group A Strep) Not Detected Not Detected 07/01/2024 2:06 PM NUCLEAR PROCESS ENGINEER [facility] Swab STRUCTURE OF THROAT / Unknown Non-blood collection / Unknown 07/01/2024 1:33 PM NUCLEAR PROCESS ENGINEER 07/01/2024 1:39 PM NUCLEAR PROCESS ENGINEER Narrative [facility] - 07/01/2024 2:06 PM NUCLEAR PROCESS ENGINEER Test results must be interpreted within the context of all relevant clinical and laboratory findings. Method Information This test uses the CepRamenid Xpert Xpress Strep A assay to detect Streptococcus pyogenes (Group A Beta-Hemolytic Streptococcus) DNA by real-time polymerase chain reaction (PCR) on the OdinOtvet GeneXpert Instrument System. us Ken NUNO MICROBIOLOGY - GENERAL ORDERABLES Final Result [facility] [address] [place], [place] [address] documented in this encounter Visit Diagnoses Diagnosis Acute cough- Primary Acute cough documented in this encounter Historical Medications * This list may reflect changes made after this encounter. FLUoxetine (PROzac) 40 MG capsule Take 40 mg by mouth one time a day. added in this encounter
--- OUTSIDE RECORDS SUMMARY | 2024-07-20 21:46 | XMS_ITS | Encounter Summary ---
Author Organization [facility] Address [address] [address] Phone Care Team Providers Care Commercial Attache Name Role Phone Unavailable Primary Care Provider Unavailabl e Encounter Details Date Type Department Care Team (Latest Contact Info) Description 07/01/2024 Travel Social History Tobacco Use Types Packs/Day Years Used Date Smoking Tobacco: Never Smokeless Tobacco: Never PHQ-2 Answer Date Recorded PHQ-2 Total 0 07/01/2024 Comments Unknown Sex and Gender Information Value Date Recorded Sex Assigned at Not on file Legal Sex Female 12:08 PM INDUSTRIAL HYGIENE MANAGER Gender Identity Not on file Sexual Orientation Not on file documented as of this encounter Plan of Treatment Not on file documented as of this encounter Visit Diagnoses Not on filedocumented in this encounter
--- OUTSIDE RECORDS SUMMARY | 2024-07-20 21:46 | XMS_ITS | Encounter Summary ---
Author Organization [facility] Address [address] [place] [address]. [place] [address] Care Team Providers Care Radiology Administrator Name Role Phone Jaymie Burgos MD Primary Care Provider [phone] Encounter Details Date Type Department Care Team (Latest Contact Info) Description 07/06/2024 Travel Social History Tobacco Use Types Packs/Day Years Used Date Smoking Tobacco: Never Alcohol Use Standard Drinks/Week Comments No 0 (1 standard drink = 0.6 oz pur e alcohol) Adolescent Education Answer Date Record ed Getting School Help Needed Not on file 02/26 Comments Unknown Sex and Gender Information Value Date Recorded Sex Assigned at Not on file Legal Sex Female 5:14 AM PLANNER Gender Identity Not on file Sexual Orientation Not on file documented as of this encounter Plan of Treatment Not on file documented as of this encounter Visit Diagnoses Not on filedocumented in this encounter Care Teams Radiology Administrator Relationship Specialty Start Date End Date Jaymie Burgos MD [address] [facility] [address] [place] [address] PCP - General channel development director 03/10/11 documented as of this encounter
--- OUTSIDE RECORDS SUMMARY | 2024-07-20 21:46 | XMS_ITS | Encounter Summary ---
Author Organization [facility] Address [address] [place] [address] Care Team Providers Care Floriculture Professor Name Role Phone Jaymie Burgos MD Primary Care Provider [phone] Reason for Referral * Diagnostic Imaging Ultrasound (Routine) - Pending Review Specialty Diagnoses / Procedures Referred By Britneyac t Referred To Contact Radiology. Diagnoses Pain of left breast Procedures US Breast Left Vivian Cuevas APRN DINKEY ENGINE FIRER/FIREMAN [facility] [address] [place] [address] Phone: tel: fax: Referral ID Status Reason Start Date Expiration Date V isits Requested Visits Authorized [id number] Pending Review 06/30/2024 06/30/2025 1 1 AND PAPER TESTER Reason for Visit * Diagnostic Imaging Ultrasound (Routine) - Pending Review Specialty Diagnoses / Procedures Referred By Contac t Referred To Contact Radiology. Diagnoses Pain of left breast Procedures US Breast Left Vivian Cuevas APRN DINKEY ENGINE FIRER/FIREMAN [facility] [address] [place] [address] Phone: tel: fax: Referral ID Status Reason Start Date Expiration Date V isits Requested Visits Authorized [id number] Pending Review 06/30/2024 06/30/2025 1 1 Encounter Details Date Type Department Care Team (Late st Contact Info) Description 07/06/2024 8:15 AM PULP AND PAPER TESTER - 07/06/2024 11:59 PM PULP AND PAPER TESTER Hospital Encounter [facility] [address] [facility], [address] [place] [address] Vivian Cuevas M, MENTAL [facility] LEAD PSYCHOLOGIST DINKEY ENGINE FIRER/FIREMAN [facility] [address] [place] [id number] Pain of left breast Discharge Disposition: Home or Self Care Social History Tobacco Use Types Packs/Day Years Used Date Smoking Tobacco: Never Alcohol Use Standard Drinks/Week Comments No 0 (1 standard drink = 0.6 oz pur e alcohol) Adolescent Education Answer Date Record ed Getting School Help Needed Not on file 02/26 Comments Unknown Sex and Gender Information Value Date Recorded Sex Assigned at Not on file Legal Sex Female 5:14 AM PULP AND PAPER TESTER Gender Identity Not on file Sexual Orientation Not on file documented as of this encounter Medications at Time of Discharge Mwhdfrjoxu-GYFP-C affeine (FIORICET PO) Take 1-2 tablets by mouth every 4 hours as needed. ibuprofen (ADVIL,MOTRIN) 400-800 mg tabletIndications :S/P section Take 1-2 tablets (400-800 mg) by mouth every 6 hours as needed (cramping) 45 tablet 0 01/25/2013 oxyCODONE (ROXICODONE) 5 MG tablet Take 1 tablet (5 mg) by mouth every 6 hours as needed for pain 6 tablet 02/26/2022 PREDNISONE PO Take 20 mg by mouth daily. VITAMINS PO Take 1 tablet by mouth. documented as of this encounter Plan of Treatment Not on file documented as of this encounter Procedures Procedure Name Priority Date/Time Associated Diagnosis Comments US BREAST LEFT LIMITED 1-3 QUADRANTS Routine 07/06/2024 8:51 AM PULP AND PAPER TESTER Pain of left breast documented in this encounter Results * US Breast Left (07/06/2024 8:51 AM PULP AND PAPER TESTER) Anatomical Region Laterality Modality Breast Left Ultrasound Impressions 07/06/2024 9:13 AM PULP AND PAPER TESTER IMPRESSION: BI-RADS CATEGORY: 1 - Negative. RECOMMENDED FOLLOW-UP: Routine yearly mammography beginning at age 40 or as discussed with your provider. Clinical follow-up is recommended, with management dependent on the results/findings of the physical examination. The results and recommendation were communicated to the patient at the conclusion of today's appointment. LORENA PARKER MD Narrative 07/06/2024 9:13 AM PULP AND PAPER TESTER DIAGNOSTIC MAMMOGRAM, BILATERAL, DIGITAL w/CAD AND TOMOSYNTHESIS - 07/06/2024 8:39 AM ULTRASOUND LEFT BREAST HISTORY: Left breast pain. COMPARISON: Prior mammograms in 2015. BREAST DENSITY: The breasts are heterogeneously dense, which may obscure small masses. FINDINGS: No mammographic findings suspicious for malignancy. Targeted ultrasound evaluation of the left breast from 4:00 to 5:00 at the site of pain demonstrates no underlying sonographic abnormalities. us Vivian Cuevas APRN DINKEY ENGINE FIRER/FIREMAN IMG US ORDERABLES Ed ited documented in this encounter Visit Diagnoses Diagnosis Pain of left breast Mastodynia documented in this encounter Care Teams Floriculture Professor Relationship Specialty Start Date End Date Jaymie Burgos MD [address] [place] [address] PCP - General blow molding machine tender 03/10/11 documented as of this encounter
--- OUTSIDE RECORDS SUMMARY | 2024-07-20 21:46 | XMS_ITS | Encounter Summary ---
Author Organization [facility] Address [address] [place] [address] Care Team Providers Care Freight Tallier Name Role Phone Jaymie Burgos MD Primary Care Provider [phone] Reason for Visit * Reason Onset Date Comments Nurse Advice Line 06/14/2011 Encounter Details Date Type Department Care Team (Late st Contact Info) Description 06/14/2011 Telephone [facility] FOR [facility] Jaymie Burgos MD OBGYN & Infertility - [facility] [address] [facility] [address] [place] [address] Nurse Advice Line Social History Tobacco Use Types Packs/Day Years Used Date Smoking Tobacco: Never Assessed Comments Unknown Sex and Gender Information Value Date Recorded Sex Assigned at Not on file Legal Sex Female 5:14 AM FARMWORKER CRANBERRY Gender Identity Not on file Sexual Orientation Not on file documented as of this encounter Miscellaneous Notes * Telephone Encounter - Marie Clarke - 06/14/2011 12:53 PM CST [facility] Triage Call Report Patient Name: Nettie Jordan Call Date & Time: 06/13/2011 12:44:08PM Patient PCP Name: MRN: Patient Address: Patient Date of : 1980 Age: 31 yr. Patient Gender: Female Robotics Testing Technician Name: Kaitlyn Marshall Presenting Problem: I have the flu and I'm concerned about my 12 week old son. Caller is breast feeding. Triaged caller and provided home care advice. Called Dr. Dung Guerra chief of field operations Peds for [facility], she requested that I advised caller to continue to breastfeed, use good handwashing techniques and drink extra fluids. Nettie appears to understand directives. Triage Note: Guideline Title: Nausea / Vomiting Recommended Disposition: Override Disposition: Provide Home/Self Care Question Response Question Note New or worsening signs and symptoms that may indicate No shock Sudden onset vomiting following ingestion or inhalation No overdose (accidental or intentional) of illegal, prescription, OTC or alternative drugs Following ingestion of toxic or caustic substance No Any other cardiac signs/symptoms for more than 5 No minutes, now or within last hour Unbearable abdominal/pelvic pain No Vomiting red, bloody or coffee-ground material, more than No streaks of blood or scant amount (not following nosebleed within past day) Possible or known SANDOVAL Other vomiting of blood (red, black, coffee ground, scant, No or large amount) Any vomiting associated with a head injury, now or within No previous 48 hours Abdominal pain is more bothersome than vomiting No Any change in vision OR eye pain No Foreign body in mouth, throat, or esophagus No Known diabetic No Smoke/carbon monoxide exposure No New onset nausea/vomiting associated with stiff neck or No severe generalized headache, and any temperature elevation Vomiting associated with sudden onset of focal No neurological changes (difficulty speaking, numbness, weakness, paralysis, loss of coordination) Signs of dehydration No Bloody diarrhea associated with any temperature No elevation AND has not been evaluated. Abdominal pain, which may be colicky, followed by No episodes of vomiting occurring more than 8 hours; abdominal swelling may or may not occur. Abruptly stopped or decreased dose of corticosteroids No Continuous or excessive alcohol intake during a few hours No AND not oriented to person, time or place Nausea/vomiting associated with sudden onset of moderate No to severe pain in genitals, groin or lower abdomen. Unable to take or keep down prescription medication (heart, No respiratory, diabetes, thyroid, antibiotics, BCP, corticosteroids) because of nausea/vomiting Symptoms started after recent GI/ surgery or procedure No (bowel resection, prostate surgery, or diagnostic/surgical endoscopy) during cautionary timeframe specified in post-op instructions New onset of vomiting following recent radiation or No chemotherapy AND symptoms are not improving with home care Currently being treated for gastrointestinal disease No (pancreatitis, gallstones, ulcers) AND symptoms not improving or are worsening Continuous or repeated vomiting for more than 8 hours No AND unable to keep any fluids down Recent onset of increased urination, thirst, hunger with No weight loss, fatigue Nausea/vomiting associated with fever 101.5 F (38.6 C) No or higher AND urinary tract symptoms. Diagnosed with Meniere's disease or labyrinthitis AND No not responding to previous treatment recommended by provider Symptoms began after starting or changing dose of No prescription, OTC, alternative medication, or illicit drug Diarrhea (without blood in stool) following crampy No abdominal pain AND repeated vomiting that has not improved with 3 days of home care New onset jaundice No Frequent episodes of indigestion/reflux No Loss of appetite for 3 or more days OR nausea for 7 or No more days Sudden onset of diarrhea, usually with abdominal pain, Yes Had Ahi tuna last night nausea and sometimes vomiting, occurring within 36 hours after eating unpasteurized, raw or undercooked foods OR drinking unpurified or nonchlorinated water Physician Contacted: Physician Instructions: No Care Advice: - Do not take aspirin, ibuprofen, ketoprofen, naproxen, etc., or other pain relieving medications until consulting with provider. - Call provider immediately if vomiting and diarrhea persist more than 3 days; develop a temperature of 101.5 F (38.6 C) or more; or if having severe abdominal pain or abdominal swelling. - Avoid food poisoning by safe handling of foods: - Washing hands thoroughly before food preparation or handling. - Cook foods to proper temperature. - Promptly refrigerate perishable foods within 1 to 2 hours of cooking. - Clean food preparation area and utensils with hot soapy water. - Wash all fresh produce including pre-washed fruits and vegetables. - Prepare fruits and vegetables on a different cutting board than meats or poultry. - SYMPTOM / CONDITION MANAGEMENT MEDICAL HISTORY Conditions: Condition Note: .Denies Medication: Medication Note: .Other - RX Med, not on list Vitamins Allergy: Reaction: .Denies .None Procedure: Procedure Note: .Other on 03/17/11 WORKER CRANBERRY documented in this encounter Plan of Treatment Not on file documented as of this encounter Visit Diagnoses Not on filedocumented in this encounter Care Teams Freight Tallier Relationship Specialty Start Date End Date Jaymie Burgos MD [address] [place] [address] PCP - General edge bander hand 03/10/11 documented as of this encounter
--- OUTSIDE RECORDS SUMMARY | 2024-07-20 21:46 | XMS_ITS | Encounter Summary ---
Author Organization [facility] Address [address] [place] [address] Care Team Providers Care Funeral Attendant Name Role Phone Jaymie Burgos MD Primary Care Provider [phone] Reason for Referral * Diagnostic Imaging Mammo (Routine) - Pending Review Specialty Diagnoses / Procedures [facility]erred To Contact Radiology. Diagnoses Pain of left breast Procedures MA Diagnostic Bilateral w/Rell Vivian Cuevas APRN LEATHER GOODS II ASSEMBLER [facility] [address] [place] [address] Phone: tel: fax: Referral ID Status Reason Start Date Expiration Date V isits Requested Visits Authorized [id number] Pending Review 06/30/2024 06/30/2025 1 1 AND DIE REPAIRER Reason for Visit * Diagnostic Imaging Mammo (Routine) - Pending Review Specialty Diagnoses / Procedures [facility] Referred To Contact Radiology. Diagnoses Pain of left breast Procedures MA Diagnostic Bilateral w/Rell Vivian Cuevas APRN LEATHER GOODS II ASSEMBLER [facility] [address] [place] [address] Phone: tel: fax: Referral ID Status Reason Start Date Expiration Date V isits Requested Visits Authorized [id number] Pending Review 06/30/2024 06/30/2025 1 1 Encounter Details Date Type Department Care Team (Late st Contact Info) Description 07/06/2024 8:13 AM TOOL AND DIE REPAIRER - 07/06/2024 8:14 AM TOOL AND DIE REPAIRER Hospital Encounter [facility] [address] [place] [address] Vivian Cuevas, ORE DRYER LEATHER GOODS II ASSEMBLER [facility] [address] [place] [address] Pain of left breast Discharge Disposition: Home [...] on file Legal Sex Female 5:14 AM TOOL AND DIE REPAIRER Gender Identity Not on file Sexual Orientation Not on file documented as of this encounter Medications at Time of Discharge Gudjmutivg-TARV-Y affeine (FIORICET PO) Take 1-2 tablets by [...] Procedure Name Priority Date/Time Associated Diagnosis Comments MA DIAGNOSTIC BILATERAL W/ RELL Routine 07/06/2024 8:39 AM TOOL AND DIE REPAIRER Pain of left breast documented in this encounter Results * MA Diagnostic Bilateral w/Rell (07/06/2024 8:39 AM TOOL AND DIE REPAIRER) Anatomical Region Laterality Modality Breast Bilateral Mammography Impressions 07/06/2024 9:13 AM TOOL AND DIE REPAIRER IMPRESSION: BI-RADS CATEGORY: 1 - Negative. RECOMMENDED FOLLOW-UP: Routine yearly mammography beginning at age 40 or as discussed with your provider. Clinical follow-up is recommended, with management dependent on the results/findings of the physical examination. The results and recommendation were communicated to the patient at the conclusion of today's appointment. LORENA PARKER MD Narrative 07/06/2024 9:13 AM TOOL AND DIE REPAIRER DIAGNOSTIC MAMMOGRAM, BILATERAL, DIGITAL w/CAD AND TOMOSYNTHESIS [...] underlying sonographic abnormalities. us Vivian Cuevas APRN LEATHER GOODS II ASSEMBLER IM MAMMOGRAPHY MARIE NAVARRO Final Result documented in this encounter Visit Diagnoses Diagnosis Pain of left breast Mastodynia documented in this encounter Care Teams Funeral Attendant Relationship Specialty Start Date End Date Jaymie Burgos MD [address] [place] [address] PCP - General contract design agent 03/10/11 documented as of this encounter
[2024-07-20 21:47] VITALS: BP 117/68; PULSE 99; RESP 16; TEMP 37.2; O2SAT 99; BMI 29.8
--- NOTE | 2024-07-20 21:56 | ED.GENADULT ---
HPI - General Adult General Time Seen by Provider: 21:56 Date Seen: 07/20/24 Chief complaint: Shortness of Breath/Dyspnea Stated complaint: Chest pain, difficulty breathing Time Seen by Provider: 07/20/24 21:55 Source: patient Mode of arrival: ambulatory Limitations: no limitations History of Present Illness HPI narrative: Nettie is a 44-year-old female past medical history includes migraine, anxiety, presents emerged department via private car with chest pain and shortness of breath. Patient states she was diagnosed with RSV last week, Wednesday she had cough, worsening congestion and headache, she seemed your symptoms improved until yesterday, when she developed another hacking cough, pain in her chest with coughing and worsening shortness of breath. She has also had intermittent sharp pains in the anterior chest area. It a on the left side. Comes and goes. She has also developed some more congestion. No sick contacts. Patient does not smoke. No history of any asthma. No cardiac history. Related Data Home Medications ?Medication ?Instructions ?Recorded ?Confirmed fluoxetine 40 mg capsule 40 mg PO DAILY 12/07/23 07/20/24 Allergies Allergy/AdvReac Type Severity Reaction Status Date / Time latex Allergy Unknown Verified 07/10/24 13:06 Milk Containing Products AdvReac Intermediate Verified 07/10/24 13:06 (Dairy) prednisone AdvReac Mild facial Verified 07/10/24 13:06 erythema Review of Systems Status of ROS: Reports: 10 or more systems reviewed and unremarkable except as noted in History and below [facility] PFS Medical History Chronic neck pain (08/08/12) ?M54.2 - Cervicalgia (ICD-10) ?G89.29 - Other chronic pain (ICD-10) Surgical History History of endometrial ablation ?Z98.890 - Other specified postprocedural states (ICD-10) Hx of section ?Z98.891 - History of uterine scar from previous surgery (ICD-10) Social History Smoking Status: Never smoker How often do you have a drink containing alcohol: never AUDIT-C Alcohol total score: 0 Non-prescribed substance use: denies use Exam Narrative: Exam Narrative: General: NAD HEENT: Tympanic membranes within normal limits bilaterally, pupils equal round reactive to light, extraocular muscles intact Lungs: Clear to auscultation bilaterally Heart: Normal sinus rhythm Abdomen: Soft, nontender Muscle skeletal: +5 strength upper lower extremities Neuro: Alert awake and oriented x3 Const: Vital Signs, click to edit/add: Vital Signs - 24 hr 07/20/24 21:47 07/20/24 23:20 Temperature 99 F 98.8 F Pulse Rate [Pulse Oximeter] 99 64 Respiratory Rate 16 18 Blood Pressure [Ri ght Upper Arm] 117/68 123/85 Pulse Oximetry 99 99 Oxygen Delivery Me thod Room Air Room Air Course Course ED Course: AIDET performed. Patient has temp 99?, O2 sats 99% on room air, also 99, blood pressure 117/68. Workup will include QEPZS-pudkppebq-YKS nasopharyngeal swab, EKG, CBC, CRP and CMP. XR chest PA and lateral. She received 800 mg Motrin for her body aches chills, 10 mg oral Decadron for her cough, 100 mg Tessalon capsule, albuterol inhaler for her worsening shortness of breath. Will plan to rule out pneumonia, suspect viral etiology. Less likely car cardiology in origin. Reevaluation(s) Time of Reevaluation #1: 23:37 Reevaluation #1: EKG showed normal sinus rhythm, bpm 70, no acute ST changes, troponin T was negative, imaging showed no acute cardiopulmonary process, RSV was positive, CBC showed no leukocytosis, comprehensive metabolic panel showed normal electrolytes and renal function, CRP was also negative, she was given the above care and did well, will continue with albuterol inhaler 1-2 puffs every 4-6 hours, Tessalon Perles 100 mg capsules 3 times daily over the next 5 days, Motrin or Tylenol every 4-6 hours as needed for fever and body aches. She should follow up with primary care provider over the next 7-10 days. Vital Signs Vital signs: Initial Vital Signs Temperature 99 F 07/20/24 21:47 Temperature Source Temporal Artery Scan 07/20/24 21:47 Pulse Rate 99 07/20/24 21:47 Respiratory Rate 16 07/20/24 21:47 Blood Pressure 117/68 07/20/24 21:47 Blood Pressure Mean 84 07/20/24 21:47 Blood Pressure Position Sitting 07/20/24 21:47 Pulse Oximetry 99 07/20/24 21:47 Oxygen Delivery Method Room Air 07/20/24 21:47 Vital Signs Temperature 99 F 07/20/24 21:47 Pulse Rate 99 07/20/24 21:47 Respiratory Rate 16 07/20/24 21:47 Blood Pressure 117/68 07/20/24 21:47 Pulse Oximetry 99 07/20/24 21:47 Oxygen Delivery Method Room Air 07/20/24 21:47 Temperature 98.8 F 07/20/24 23:20 Pulse Rate 64 07/20/24 23:20 Respiratory Rate 18 07/20/24 23:20 Blood Pressure 123/85 07/20/24 23:20 Pulse Oximetry 99 07/20/24 23:20 Oxygen Delivery Method Room Air 07/20/24 23:20 Medications Administered Medications: Discontinued Medications Generic Name Dose Route Start Last Admin Trade Name Jose Elias PRN Reason Stop Dose Admin Benzonatate 100 mg 07/20/24 22:39 07/20/24 23:18 Benzonatate 100 Mg Capsule PO 07/20/24 22:40 100 mg ONCE ONE Administration Dexamethasone 10 mg 07/20/24 22:38 07/20/24 23:16 Dexamethasone 4 Mg Tablet PO 07/20/24 22:39 10 mg ONCE ONE Administration Ibuprofen 800 mg 07/20/24 22:46 07/20/24 23:15 Ibuprofen 400 Mg Tablet PO 07/20/24 22:47 800 mg ONCE ONE Administration Medical Decision Making Lab Data Labs: Lab Results 07/20/24 07/20/24 Range/Units 22:06 22:11 WBC 6.33 (4.50-11.00) K/uL RBC 4.55 (4.00-5.20) m/uL Hgb 13.1 (12.0-16.0) gm/dL Hct 38.9 (33.0-51.0) % MCV 86 (80-100) fL MCH 29 (26-34) pg MCHC 34 (32-36) gm/dL RDW Coeff of Mahesh 12.8 (11.5-15.5) % Plt Count 227 (140-440) K/uL Neut % (Auto) 54.0 (42.0-72.0) % Lymph % (Auto) 30.8 (20-44) % Telfair % (Auto) 10.1 (0.0-11.0) % Eos % (Auto) 4.3 (0.0-7.0) % Baso % (Auto) 0.3 (0.0-3.0) % Neut # (Auto) 3.42 (1.7-7.0) K/uL Lymph # (Auto) 1.95 (0.90-2.90) K/uL Telfair # (Auto) 0.60 (0.00-0.90) K/UL Eos # (Auto) 0.27 (0.00-0.50) K/uL Baso # (Auto) 0.02 (0.00-0.30) K/uL Abs Immat Gran (auto) 0.03 (0.00-0.30) K/uL Imm/Tot Granulo (auto) 0.5 % Sodium 136 (135-149) mmol/L Potassium 3.8 (3.6-5.1) mmol/L Chloride 106 (96-114) mmol/L Carbon Dioxide 21 (20-32) mmol/L Anion Gap 9 (7-15) mEq/L BUN 18 (5-24) mg/dL Creatinine 0.6 (0.5-1.5) mg/dL Estimated Creat Clear 118.78 Estimated GFR 115 ml/min Glucose 94 (60-115) mg/dL Lactate 0.5 (0.5-1.9) mmol/L Calcium 9.1 (8.4-10.6) mg/dL Total Bilirubin 0.5 (0.1-1.5) mg/dL AST 22 (12-35) U/L ALT 26 (4-35) U/L Alkaline Phosphatase 53 (40-150) U/L Troponin I < 0.01 L (0.01-0.04) ng/mL C-Reactive Protein < 0.5 L (0.5-1.0) mg/dL Total Protein 6.7 (6.0-8.3) g/dL Albumin 4.1 (3.3-5.0) g/dL SARS-CoV-2 (PCR) Negative SARS-CoV-2 (Negative) Influenza Type A (PCR) Negative PCR FLU A (Negative) Influenza Type B (PCR) Negative PCR FLU B (Negative) RSV (PCR) POSITIVE PCR RSV A (Negative) Discharge Plan Discharge Clinical Impression: Respiratory syncytial virus (RSV) infection Patient Disposition: Home, Self-Care Condition: Improved Instructions: Acute Cough (ED), RSV (Respiratory Syncytial Virus) Infection (ED) Additional Instructions: Tessalon Perles capsule 100 mg 3 times daily over the next 5 days, albuterol inhaler 1-2 puffs every 4-6 hours, OTC Robitussin, Mucinex p.r.n., Tylenol and or Motrin every 4-6 hours as needed for body aches and fevers. Follow-up primary care provider over the next 7-10 days. Activity Level: No Restrictions Discharge Diet: Regular Prescriptions: No Action fluoxetine 40 mg capsule 40 mg PO DAILY Follow Up/Referrals: Provider,Not a Local [Primary Care Provider] - Stand Alone Forms: [employer] Info Instructions
[2024-07-20 22:12] LABS: Lactate* 0.5 mmol/L (0.5-1.9)
[2024-07-20 22:28] LABS: Albumin* 4.1 g/dL (3.3-5.0); Basophils Absolute Auto 0.02 K/uL (0.00-0.30); Basophils Percent Auto 0.3 % (0.0-3.0); Chloride* 106 mmol/L (96-114); Eosinophils Absolute Auto 0.27 K/uL (0.00-0.50); Eosinophils Percent Auto 4.3 % (0.0-7.0); Hematocrit 38.9 % (33.0-51.0); Hemoglobin* 13.1 gm/dL (12.0-16.0); Immature Granulocytes Abs Auto 0.03 K/uL (0.00-0.30); Immature Granulocytes Pct Auto 0.5 %; Lymphocytes Absolute Auto 1.95 K/uL (0.90-2.90); Lymphocytes Percent Auto 30.8 % (20-44); Mean Corpuscular HGB Conc 34 gm/dL (32-36); Mean Corpuscular Hemoglobin 29 pg (26-34); Mean Corpuscular Volume 86 fL (80-100); Monocytes Percent Auto 10.1 % (0.0-11.0); Neutrophils Absolute Auto 3.42 K/uL (1.7-7.0); Platelet Count* 227 K/uL (140-440); Potassium* 3.8 mmol/L (3.6-5.1); RDW Coefficient of Variation % 12.8 % (11.5-15.5); Red Blood Count 4.55 m/uL (4.00-5.20); Sodium* 136 mmol/L (135-149); White Blood Count* 6.33 K/uL (4.50-11.00)
[2024-07-20 22:29] LABS: Slide Review Reflex No
[2024-07-20 22:30] LABS: Anion Gap 9 mEq/L (7-15); Aspartate Amino Transferase* 22 U/L (12-35); Bilirubin Total* 0.5 mg/dL (0.1-1.5); Carbon Dioxide* 21 mmol/L (20-32); Creatinine* 0.6 mg/dL (0.5-1.5); Est. Creatinine Clearance* 118.78; Estimated Glomerular Filt Rate 115 ml/min; Total Protein* 6.7 g/dL (6.0-8.3)
[2024-07-20 22:31] LABS: Alanine Aminotransferase* 26 U/L (4-35); Alkaline Phosphatase* 53 U/L (40-150); Blood Urea Nitrogen* 18 mg/dL (5-24); Calcium* 9.1 mg/dL (8.4-10.6); Glucose* 94 mg/dL (60-115)
[2024-07-20 22:44] LABS: C Reactive Protein* < 0.5 mg/dL (0.5-1.0)
[2024-07-20 22:48] LABS: PCR FLU A Negative PCR FLU A (Negative); PCR FLU B Negative PCR FLU B (Negative); PCR RSV POSITIVE PCR RSV (Negative); SARS PCR* Negative SARS-CoV-2 (Negative)
[2024-07-20 22:54] LABS: Troponin I* < 0.01 ng/mL (0.01-0.04)
--- OUTSIDE RECORDS SUMMARY | 2024-07-20 22:59 | XMS_ITS | Encounter Summary ---
Author Organization [facility] Address [address] [place] [address] Phone Care Team Providers Care Retail Shift Manager Name Role Phone Unavailable Primary Care Provider Unavailabl e Reason for Referral * Ancillary Services (Urgent) - Closed Specialty Diagnoses / Procedures Referred By Contac ashley Referred To Contact Radiology Diagnoses Acute cough Procedures XR CHEST 2 VIEWS Ken Ragsdale PA-C [address] [place] [address] Phone: tel: fax: Referral ID Status Reason Start Date Expiration Date Visits Re quested Visits Authorized [id number] Closed 07/01/2024 09/29/2025 1 1 TH AND SAFETY REPRESENTATIVE Reason for Visit * Ancillary Services (Urgent) - Closed Specialty Diagnoses / Procedures Referred By Isidra ramirez Referred To Contact Radiology Diagnoses Acute cough Procedures XR CHEST 2 VIEWS Ken Ragsdale PA-C [address] [place] [address] Phone: tel: fax: Referral ID Status Reason Start Date Expiration Date Visits Re quested Visits Authorized [id number] Closed 07/01/2024 09/29/2025 1 1 Encounter Details Date Type Department Care Team (Latest Contact Info) Description 07/01/2024 1:27 PM HEALTH AND SAFETY REPRESENTATIVE - 07/01/2024 11:59 PM HEALTH AND SAFETY REPRESENTATIVE Hospital Encounter [facility] RADIOLOG[facility] [address] [place] [phone] Ken Ragsdale PA-C [address] [place] [address] Acute cough Discharge Disposition: Discharged Social History Tobacco Use Types Packs/Day Years Used Date Smoking Tobacco: Never Smokeless Tobacco: Never PHQ-2 Answer Date Recorded PHQ-2 Total 0 07/01/2024 Comments Unknown Sex and Gender Information Value Date Recorded Sex Assigned at Not on file Legal Sex Female 12:08 PM HEALTH AND SAFETY REPRESENTATIVE Gender Identity Not on file Sexual Orientation [...] CHEST 2 VIEWS STAT 07/01/2024 1:47 PM HEALTH AND SAFETY REPRESENTATIVE Acute cough documented in this encounter Results * XR CHEST 2 VIEWS (07/01/2024 1:47 PM HEALTH AND SAFETY REPRESENTATIVE) Anatomical Region Laterality Modality Chest Radiographic Kirsten ging 07/01/2024 1:47 PM HEALTH AND SAFETY REPRESENTATIVE Narrative 07/01/2024 2:22 PM HEALTH AND SAFETY REPRESENTATIVE This document is currently in Final Status [...]
--- OUTSIDE RECORDS SUMMARY | 2024-07-20 22:59 | XMS_ITS | Encounter Summary ---
Author Organization [facility] Address [address] [place] [address] Care Team Providers Care Flight Operations Specialist Name Role Phone Jaymie Burgos MD Primary Care Provider [phone] Reason for Referral * Diagnostic Imaging Mammo (Routine) - Pending Review Specialty Diagnoses / Procedures [facility] Ref[facility] To Contact Radiology. Diagnoses Pain of left breast Procedures MA Diagnostic Bilateral w/Rell Vivian Cuevas APRN LOAN DOCUMENTATION SPECIALIST [facility] [address] [place] [address] Phone: tel: fax: Referral ID Status Reason Start Date Expiration Date V isits Requested Visits Authorized [id number] Pending Review 06/30/2024 06/30/2025 1 1 CO WORKER Reason for Visit * Diagnostic Imaging Mammo (Routine) - Pending Review Specialty Diagnoses / Procedures [facility] Referred To Contact Radiology. Diagnoses Pain of left breast Procedures MA Diagnostic Bilateral w/Rell Vivian Cuevas APRN LOAN DOCUMENTATION SPECIALIST [facility] [address] [place] [address] Phone: tel: fax: Referral ID Status Reason Start Date Expiration Date V isits Requested Visits Authorized [id number] Pending Review 06/30/2024 06/30/2025 1 1 Encounter Details Date Type Department Care Team (Late st Contact Info) Description 07/06/2024 8:13 AM STUCCO WORKER - 07/06/2024 8:14 AM STUCCO WORKER Hospital Encounter [facility] [address], [address] [place] [phone] Vivian Cuevas, LIVERY CAR DRIVER LOAN DOCUMENTATION SPECIALIST [facility] [address] [place] [address] Pain of left breast Discharge Disposition: Home [...] on file Legal Sex Female 5:14 AM STUCCO WORKER Gender Identity Not on file Sexual Orientation Not on file documented as of this encounter Medications at Time of Discharge Nquhctejuf-UUZS-L affeine (FIORICET PO) Take 1-2 tablets by [...] BILATERAL W/ RELL Routine 07/06/2024 8:39 AM STUCCO WORKER Pain of left breast documented in this encounter Results * MA Diagnostic Bilateral w/Rell (07/06/2024 8:39 AM STUCCO WORKER) Anatomical Region Laterality Modality Breast Bilateral Mammography Impressions 07/06/2024 9:13 AM STUCCO WORKER IMPRESSION: BI-RADS CATEGORY: 1 - Negative. RECOMMENDED FOLLOW-UP: Routine yearly mammography beginning at age 40 or as discussed with your provider. Clinical follow-up is recommended, with management dependent on the results/findings of the physical examination. The results and recommendation were communicated to the patient at the conclusion of today's appointment. LORENA PARKER MD Narrative 07/06/2024 9:13 AM STUCCO WORKER DIAGNOSTIC MAMMOGRAM, BILATERAL, DIGITAL w/CAD AND TOMOSYNTHESIS [...] underlying sonographic abnormalities. us Vivian Cuevas APRN LOAN DOCUMENTATION SPECIALIST IM MAMMOGRAPHY MARIE NAVARRO Final Result documented in this encounter Visit Diagnoses Diagnosis Pain of left breast Mastodynia documented in this encounter Care Teams Flight Operations Specialist Relationship Specialty Start Date End Date Jaymie Burgos MD [address] [place] [address] PCP - General publishing editor 03/10/11 documented as of this encounter
--- OUTSIDE RECORDS SUMMARY | 2024-07-20 22:59 | XMS_ITS | Encounter Summary ---
Author Organization [facility] Address [address] [place] [address]. [place] [address] Care Team Providers Care Sales Enablement Manager Name Role Phone Jaymie Burgos MD Primary Care Provider [phone] Encounter Details Date Type Department Care Team [...] on file Legal Sex Female 5:14 AM ENVIRONMENTAL REMEDIATION CONSULTANT Gender Identity Not on file Sexual Orientation Not on file documented as of this encounter Plan of Treatment Not on file documented as of this encounter Visit Diagnoses Not on filedocumented in this encounter Care Teams Sales Enablement Manager Relationship Specialty Start Date End Date Jaymie Burgos MD [address] [facility] [address] [place] [address] PCP - General research laboratory specialist 03/10/11 documented as of this encounter
--- OUTSIDE RECORDS SUMMARY | 2024-07-20 22:59 | XMS_ITS | Encounter Summary ---
Author Organization [facility] Address [address] [place] [address] Care Team Providers Care It Admin Name Role Phone Jaymie Burgos MD Primary Care Provider Reason for Visit * Reason Onset Date Comments Nurse Advice Line 06/14/2011 Encounter Details Date Type Department Care Team (Late st Contact Info) Description 06/14/2011 Telephone [facility] DEPT FOR CCW Jaymie Burgos MD [facility]BGYN & Infertility - [facility] [address] [facility] [address] [place] [address] Nurse Advice Line Social History Tobacco Use Types Packs/Day Years Used Date Smoking Tobacco: Never Assessed Comments Unknown Sex and Gender Information Value Date Recorded Sex Assigned at Not on file Legal Sex Female 5:14 AM CERTIFIED WELLNESS PROGRAM COORDINATOR Gender Identity Not on file Sexual Orientation Not on file documented as of this encounter Miscellaneous Notes * Telephone Encounter - Marie Clarke - 06/14/2011 12:53 PM CST [facility] Triage Call Report Patient Name: Nettie Jordan Call Date & Time: 06/13/2011 12:44:08PM Patient PCP Name: MRN: Patient Address: Patient Date of : 1980 Age: 31 yr. Patient Gender: Female Behavioral Analyst Name: Kaitlyn Marshall Presenting Problem: I have the flu and I'm concerned about my 12 week old son. Caller is breast feeding. Triaged caller and provided home care advice. Called Dr. Dung Guerra hydroelectric production manager Peds [facility], she requested that I advised caller [...] .None Procedure: Procedure Note: .Other on 03/17/11 IFIED WELLNESS PROGRAM COORDINATOR documented in this encounter Plan of Treatment Not on file documented as of this encounter Visit Diagnoses Not on filedocumented in this encounter Care Teams It Admin Relationship Specialty Start Date End Date Jaymie Burgos MD [address] [place] [address] PCP - General zigzag stitcher 03/10/11 documented as of this encounter
--- OUTSIDE RECORDS SUMMARY | 2024-07-20 22:59 | XMS_ITS | Clinical Summary ---
Author Organization [facility] Address [address] [address] Phone Care Team Providers Care Outer Diameter Technician Name Role Phone Unavailable Primary Care Provider [...] Department Care Team Description 07/01/2024 1:27 PM ROTOR PILOT - 07/01/2024 11:59 PM ROTOR PILOT Hospital Encounter [facility] RADIOLOGY [address] [place] [phone] Ken Ragsdale PA-C Acute cough Discharge Disposition: Discharged 07/01/2024 12:20 PM ROTOR PILOT Office Visit [facility] [address] [place] [phone] Ken Ragsdale PA-C Acute cough (Primary Dx) 07/01/2024 Travel from Last 3 Months Social History Tobacco Use Types Packs/Day Years Used Date Smoking Tobacco: Never Smokeless Tobacco: Never Tobacco Cessation:Counseling Given: Not Answered PHQ-2 Answer Date Recorded PHQ-2 Total 0 07/01/2024 Comments Unknown Sex and Gender Information Value Date Recorded Sex Assigned at Not on file Legal Sex Female 12:08 PM ROTOR PILOT Gender Identity Not on file Sexual Orientation Not on file Obstetrics History Last Filed Vital Signs Vital Sign Reading Time Taken Comments Blood Pressure 112/70 07/01/2024 12:40 PM ROTOR PILOT Pulse 78 07/01/2024 12:40 PM ROTOR PILOT Temperature 37.2 C (98.9 F) 07/01/2024 12:40 PM ROTOR PILOT Respiratory Rate 16 07/01/2024 12:40 PM ROTOR PILOT Oxygen Saturation 98% 07/01/2024 12:40 PM ROTOR PILOT Inhaled Oxygen Concentration - - Weight 88.7 kg (195 lb 8.8 oz) 07/01/2024 12:40 PM ROTOR PILOT Height - - Body Mass Index - [...] CHEST 2 VIEWS STAT 07/01/2024 1:47 PM ROTOR PILOT Acute cough STREP A, MOLECULAR DETECTION Routine 07/01/2024 1:33 PM ROTOR PILOT Acute cough from Last 3 Months Results * XR CHEST 2 VIEWS (07/01/2024 1:47 PM ROTOR PILOT) Anatomical Region Laterality Modality Chest Radiographic Kirsten ging 07/01/2024 1:47 PM ROTOR PILOT Narrative 07/01/2024 2:22 PM ROTOR PILOT This document is currently in Final Status [...] STREP A, MOLECULAR DETECTION (07/01/2024 1:33 PM ROTOR PILOT) Streptococcus pyogenes (Group A Strep) Not Detected Not Detected 07/01/2024 2:06 PM ROTOR PILOT [facility] Swab STRUCTURE OF THROAT / Unknown Non-blood collection / Unknown 07/01/2024 1:33 PM ROTOR PILOT 07/01/2024 1:39 PM ROTOR PILOT Narrative [facility] - 07/01/2024 2:06 PM ROTOR PILOT Test results must be interpreted within the context of all relevant clinical and laboratory findings. Method Information This test uses the CepClusterFlunk Xpert Xpress Strep A assay to detect Streptococcus pyogenes (Group A Beta-Hemolytic Streptococcus) DNA by real-time polymerase chain reaction (PCR) on the [employer] GeneXpert Instrument System. Ken NUNO MICROBIOLOGY - GENERAL ORDERABLES Final Result [facility] [address] [place] [address], [facility] from Last 3 Months Insurance [facility] [place] [facility] Commercial Address: [facility] [address] [place] [address]
--- OUTSIDE RECORDS SUMMARY | 2024-07-20 22:59 | XMS_ITS | Encounter Summary ---
Author Organization [facility] Address [address] [place] [address] Care Team Providers Care Microbiology Professor Name Role Phone Jaymie Burgos MD Primary Care Provider [phone] Reason for Referral * Diagnostic Imaging Ultrasound (Routine) - Pending Review Specialty Diagnoses / Procedures Referred By Britneyac t Referred To Contact Radiology. Diagnoses Pain of left breast Procedures US Breast Left Vivian Cuevas APRN IMMIGRATION GUARD [facility] [address] [place] [address] Phone: tel: fax: Referral ID Status Reason Start Date Expiration Date V isits Requested Visits Authorized [id number] Pending Review 06/30/2024 06/30/2025 1 1 N MAKER MACHINE Reason for Visit * Diagnostic Imaging Ultrasound (Routine) - Pending Review Specialty Diagnoses / Procedures Referred By Contac t Referred To Contact Radiology. Diagnoses Pain of left breast Procedures US Breast Left Vivian Cuevas APRN IMMIGRATION GUARD [facility] [address] [place] [address] Phone: tel: fax: Referral ID Status Reason Start Date Expiration Date V isits Requested Visits Authorized [id number] Pending Review 06/30/2024 06/30/2025 1 1 Encounter Details Date Type Department Care Team (Late st Contact Info) Description 07/06/2024 8:15 AM CHAIN MAKER MACHINE - 07/06/2024 11:59 PM CHAIN MAKER MACHINE Hospital Encounter [facility] [address] [facility], [address] [place] [address] Vivian Cuevas M, AEROSOL LINE OPERATOR IMMIGRATION GUARD [facility] [address] [place] [id number] Pain of left breast Discharge Disposition: Home [...] on file Legal Sex Female 5:14 AM CHAIN MAKER MACHINE Gender Identity Not on file Sexual Orientation Not on file documented as of this encounter Medications at Time of Discharge Qvmttyhone-EXWP-U affeine (FIORICET PO) Take 1-2 tablets by [...] LIMITED 1-3 QUADRANTS Routine 07/06/2024 8:51 AM CHAIN MAKER MACHINE Pain of left breast documented in this encounter Results * US Breast Left (07/06/2024 8:51 AM CHAIN MAKER MACHINE) Anatomical Region Laterality Modality Breast Left Ultrasound Impressions 07/06/2024 9:13 AM CHAIN MAKER MACHINE IMPRESSION: BI-RADS CATEGORY: 1 - Negative. RECOMMENDED FOLLOW-UP: Routine yearly mammography beginning at age 40 or as discussed with your provider. Clinical follow-up is recommended, with management dependent on the results/findings of the physical examination. The results and recommendation were communicated to the patient at the conclusion of today's appointment. LORENA PARKER MD Narrative 07/06/2024 9:13 AM CHAIN MAKER MACHINE DIAGNOSTIC MAMMOGRAM, BILATERAL, DIGITAL w/CAD AND TOMOSYNTHESIS [...] underlying sonographic abnormalities. us Vivian Cuevas APRN IMMIGRATION GUARD IMG US ORDERABLES Ed ited documented in this encounter Visit Diagnoses Diagnosis Pain of left breast Mastodynia documented in this encounter Care Teams Microbiology Professor Relationship Specialty Start Date End Date Jaymie Burgos MD [address] [place] [address] PCP - General prop sawyer 03/10/11 documented as of this encounter
--- OUTSIDE RECORDS SUMMARY | 2024-07-20 22:59 | XMS_ITS | Encounter Summary ---
Author Organization [facility] Address [address] [address] Phone Care Team Providers Care Director News Name Role Phone Unavailable Primary Care Provider [...] on file Legal Sex Female 12:08 PM DELIVERY COORDINATOR Gender Identity Not on file Sexual Orientation Not on file documented as of this encounter Plan of Treatment Not on file documented as of this encounter Visit Diagnoses Not on filedocumented in this encounter
--- OUTSIDE RECORDS SUMMARY | 2024-07-20 22:59 | XMS_ITS | Clinical Summary ---
Author Organization [facility] Address [place], [place] [address] Care Team Providers Care Acting Manager Name Role Phone Pcp, No Primary Care [...] on file Legal Sex Female 5:19 AM PUBLIC HEALTH VETERINARIAN Gender Identity Not on file Sexual Orientation [...] 170 cm (5' 6.93) 05/18/2017 9:55 AM PUBLIC HEALTH VETERINARIAN Body Mass Index 29.54 05/18/2017 9:55 AM PUBLIC HEALTH VETERINARIAN Plan of Treatment Health Maintenance Due Date [...] Procedure Name Priority Date/Time Associated Diagnosis Comments FLOWER POT PRESS OPERATOR THIN PREP PAP SCREEN IMAGED Routine 02/11/2007 2:31 PM CDT Acute Pelvic Inflammatory Disease ANTI HCV Routine 06/01/2003 9:46 AM PUBLIC HEALTH VETERINARIAN from Last 3 Months or Most Recently Relevant to Health Maintenance Results * FLOWER POT PRESS OPERATOR THIN PREP PAP SCREEN IMAGED (02/11/2007 2:31 PM CDT) CYTOLOGY CYTOPATHOLOGY REPORT [facility] Status: Final Report [id number] CLINICAL INFORMATION LMP : 01/2007 Previous Pap Date : UNSURE Previous PAP Dx : Negative for intraepithelial lesion or malignancy. Previous Dameron/bx date : NO Previous Colposcopy/Bx: None Hormone Usage : None Menstrual Status : Irregular Periods Dameron/Bx done today : No HPV Request : [...] 02/11/07 ACCESSIONED: 02/11/07 SIGNED: 02/22/07 Interpreted at [facility] Cervical (Cervical) 02/11/2007 2:31 PM CDT 02/11/2007 2:30 PM CDT us Paul Nam MD PATHOLOGY/CYTOLOGY Final Result Performing Organization Address City/State/[facility] Co de Phone Number [facility] [place]NAL ZIP [phone] [place] [id number] * ANTI HCV (06/01/2003 9:46 AM PUBLIC HEALTH VETERINARIAN) ANTI HCV Non-reactiv e 06/01/2003 9:46 AM PUBLIC HEALTH VETERINARIAN Narrative 11/15/2003 1:41 AM CDT Ordered by an unspecified provider. us Other Clinical Staff SEND OUTS Final Resul t from Last 3 Months or Most Recently Relevant to Health Maintenance Insurance [employer] Care Teams Acting Manager Relationship Specialty Start Date End Date Pcp, No . PCP - General 06/04/10
--- OUTSIDE RECORDS SUMMARY | 2024-07-20 22:59 | XMS_ITS | Encounter Summary ---
Author Organization Central Address [address] [place] [address]. 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
--- OUTSIDE RECORDS SUMMARY | 2024-07-20 22:59 | XMS_ITS | Encounter Summary ---
Author Organization [facility] Address [address] [address] Phone Care Team Providers Care Heritage Consultant Name Role Phone Unavailable Primary Care Provider Unavailabl e Reason for Referral * Ancillary Services (Urgent) - Closed Specialty Diagnoses / Procedures Referred By Isidra ramirez Referred To Contact Radiology Diagnoses Acute cough Procedures XR CHEST 2 VIEWS Ken Ragsdale PA-C [address] [place] [id number] Phone: tel: fax: Referral ID Status Reason Start Date Expiration Date Visits Re quested Visits Authorized [id number] Closed 07/01/2024 09/29/2025 1 1 NICIAN ANATOMIC PATHOLOGY Reason for Visit * Reason Comments Ear Problem Patient presents to the today for issues related to a possible ear infection. Left ear is bothering her and it has been ongoing for last couple days. Encounter Details Date Type Department Care Team ([facility] st Contact Info) Description 07/01/2024 12:20 PM TECHNICIAN ANATOMIC PATHOLOGY Office Visit [facility] [address] [place] [phone] Ken Ragsdale PA-C [address] [place] [phone] Acute cough (Primary Dx) Social History Tobacco Use Types Packs/Day Years Used Date Smoking Tobacco: Never Smokeless Tobacco: Never Tobacco Cessation:Counseling Given: Not Answered PHQ-2 Answer Date Recorded PHQ-2 Total 0 07/01/2024 Comments Unknown Sex and Gender Information Value Date Recorded Sex Assigned at Not on file Legal Sex Female 12:08 PM TECHNICIAN ANATOMIC PATHOLOGY Gender Identity Not on file Sexual Orientation Not on file documented as of this encounter Last Filed Vital Signs Vital Sign Reading Time Taken Comments Blood Pressure 112/70 07/01/2024 12:40 PM TECHNICIAN ANATOMIC PATHOLOGY Pulse 78 07/01/2024 12:40 PM TECHNICIAN ANATOMIC PATHOLOGY Temperature 37.2 C (98.9 F) 07/01/2024 12:40 PM TECHNICIAN ANATOMIC PATHOLOGY Respiratory Rate 16 07/01/2024 12:40 PM TECHNICIAN ANATOMIC PATHOLOGY Oxygen Saturation 98% 07/01/2024 12:40 PM TECHNICIAN ANATOMIC PATHOLOGY Inhaled Oxygen Concentration - - Weight 88.7 kg (195 lb 8.8 oz) 07/01/2024 12:40 PM TECHNICIAN ANATOMIC PATHOLOGY Height - - Body Mass Index - - documented in this encounter Patient Instructions * Patient Instructions* Ken Ragsdale PA-C - 07/01/2024 12:20 PM TECHNICIAN ANATOMIC PATHOLOGY If continued symptoms after a couple weeks or high fever will need repeat evaluation, sooner if worsening Follow up in 1 week if no improvement, sooner if worsening NICIAN ANATOMIC PATHOLOGY NICIAN ANATOMIC PATHOLOGY NICIAN ANATOMIC PATHOLOGY NICIAN ANATOMIC PATHOLOGY documented in this encounter Ordered Prescriptions Prescription [...] days. History of Present Ilness Nettie [place] is a(n) 44 year old presenting for [...] week if no improvement, sooner if worsening NICIAN ANATOMIC PATHOLOGY documented in this encounter Plan of Treatment Not on file documented as of this encounter Procedures Procedure Name Priority Date/Time Associated Diagnosis Comments STREP A, MOLECULAR DETECTION Routine 07/01/2024 1:33 PM TECHNICIAN ANATOMIC PATHOLOGY Acute cough documented in this encounter Results * XR CHEST 2 VIEWS (07/01/2024 1:47 PM TECHNICIAN ANATOMIC PATHOLOGY) Anatomical Region Laterality Modality Chest Radiographic Kirsten ging 07/01/2024 1:47 PM TECHNICIAN ANATOMIC PATHOLOGY Narrative 07/01/2024 2:22 PM TECHNICIAN ANATOMIC PATHOLOGY This document is currently in Final Status [...] 2:22 PM Ken NUNO DI[facility]NOSTIC IM[facility]ING [facility] Final Result * STREP A, MOLECULAR DETECTION (07/01/2024 1:33 PM TECHNICIAN ANATOMIC PATHOLOGY) Streptococcus pyogenes (Group A Strep) Not Detected Not Detected 07/01/2024 2:06 PM TECHNICIAN ANATOMIC PATHOLOGY [facility] Swab STRUCTURE OF THROAT / Unknown Non-blood collection / Unknown 07/01/2024 1:33 PM TECHNICIAN ANATOMIC PATHOLOGY 07/01/2024 1:39 PM TECHNICIAN ANATOMIC PATHOLOGY Narrative [facility] - 07/01/2024 2:06 PM TECHNICIAN ANATOMIC PATHOLOGY Test results must be interpreted within the context of all relevant clinical and laboratory findings. Method Information This test uses the [employer]ep[employer] World[employer] Xpert Xpress Strep A assay to detect Streptococcus pyogenes (Group A Beta-Hemolytic Streptococcus) DNA by real-time polymerase chain reaction (PCR) on the [employer] GeneXpert Instrument System. us Ken NUNO MICROBIOLOGY - GENERAL ORDERABLES Final Result [facility] [address] [place], [place] [address] documented in this encounter Visit Diagnoses Diagnosis Acute cough- Primary Acute cough documented in this encounter Historical Medications * This list may reflect changes made after this encounter. FLUoxetine (PROzac) 40 MG capsule Take 40 mg by mouth one time a day. added in this encounter
--- OUTSIDE RECORDS SUMMARY | 2024-07-20 22:59 | XMS_ITS | Clinical Summary ---
Author Organization [facility] Address [address] [place] [address] Care Team Providers Care First Cook Name Role Phone Jaymie Burgos MD Primary Care Provider [phone] Allergies Active Allergy Reactions Criticality Noted Date [...] Department Care Team Description 07/06/2024 8:15 AM PERIOPERATIVE NURSE - 07/06/2024 11:59 PM PERIOPERATIVE NURSE Hospital Encounter [facility] [address] [place] [address] Vivian Cuevas, BREAD DOUGH MIXER RESIDENT IN DIAGNOSTIC RADIOLOGY Pain of left breast Discharge Disposition: Home or Self Care 07/06/2024 8:13 AM PERIOPERATIVE NURSE - 07/06/2024 8:14 AM PERIOPERATIVE NURSE Hospital Encounter [facility] [address] [facility], [address] [place] [id number] Vivian Cuevas, BREAD DOUGH MIXER RESIDENT IN DIAGNOSTIC RADIOLOGY Pain of left breast Discharge Disposition: Home [...] on file Legal Sex Female 5:14 AM PERIOPERATIVE NURSE Gender Identity Not on file Sexual Orientation [...] LIMITED 1-3 QUADRANTS Routine 07/06/2024 8:51 AM PERIOPERATIVE NURSE Pain of left breast MA DIAGNOSTIC BILATERAL W/ RELL Routine 07/06/2024 8:39 AM PERIOPERATIVE NURSE Pain of left breast COMPREHENSIVE METABOLIC PANEL STAT 02/26/2022 4:32 PM CDT from Last 3 Months or Most Recently Relevant to Health Maintenance Results * US Breast Left (07/06/2024 8:51 AM PERIOPERATIVE NURSE) Anatomical Region Laterality Modality Breast Left Ultrasound Impressions 07/06/2024 9:13 AM PERIOPERATIVE NURSE IMPRESSION: BI-RADS CATEGORY: 1 - Negative. RECOMMENDED FOLLOW-UP: Routine yearly mammography beginning at age 40 or as discussed with your provider. Clinical follow-up is recommended, with management dependent on the results/findings of the physical examination. The results and recommendation were communicated to the patient at the conclusion of today's appointment. LORENA PARKER MD Narrative 07/06/2024 9:13 AM PERIOPERATIVE NURSE DIAGNOSTIC MAMMOGRAM, BILATERAL, DIGITAL w/CAD AND TOMOSYNTHESIS [...] underlying sonographic abnormalities. Vivian Cuevas APRN, CNP [facility] US ORDERABLES Ed ited * MA Diagnostic Bilateral w/Rell (07/06/2024 8:39 AM PERIOPERATIVE NURSE) Anatomical Region Laterality Modality Breast Bilateral Mammography Impressions 07/06/2024 9:13 AM PERIOPERATIVE NURSE IMPRESSION: BI-RADS CATEGORY: 1 - Negative. RECOMMENDED FOLLOW-UP: Routine yearly mammography beginning at age 40 or as discussed with your provider. Clinical follow-up is recommended, with management dependent on the results/findings of the physical examination. The results and recommendation were communicated to the patient at the conclusion of today's appointment. LORENA PARKER MD Narrative 07/06/2024 9:13 AM PERIOPERATIVE NURSE DIAGNOSTIC MAMMOGRAM, BILATERAL, DIGITAL w/CAD AND TOMOSYNTHESIS [...] underlying sonographic abnormalities. Vivian Cuevas APRN, CNP [facility] MAMMOGRAPHY ORDE FRIDALES Final Result * Comprehensive [...] >90 >60 mL/min/1.7 3m2 02/26/2022 5:16 PM [facility] Comment:Effective May 082020 eGFRcr in adults is calculated using the 2020 CKD-EPI creatinine equation which includes age and gender (Linsey et al., NEJM, DOI: 10.1056/EKNXcl9205283) Blood STRUCTURE OF RIGHT UPPER LIMB / Unknown Venipuncture / Unknown 02/26/2022 4:32 PM CDT 02/26/2022 4:40 PM CDT us Paul Rivas PA-C LAB - BLOOD ORDERABLES Final Re sult LABORATORY [facility] [address], [address] [place] [id number], [facility] [phone] from Last 3 Months or Most Recently Relevant to Health Maintenance Insurance BCBS OUT OF STATE BCBS OUT OF STATE Care Teams First Cook Relationship Specialty Start Date End Date Jaymie Burgos MD [address] [place] [id number] PCP - General senior c software developer 03/10/11
--- OUTSIDE RECORDS SUMMARY | 2024-07-20 22:59 | XMS_ITS | Clinical Summary ---
Author Organization [facility] Address [address] [place] [address] Care Team Providers Care Military Education Coordinator Name Role Phone Unavailable Primary Care Provider Unavailabl e Source Comments Patient records contain information from all sites at [facility]. For routine questions regarding patient records, call [phone] during business hours, M-F 8:00 AM - 5:00 PM Central Time. Record requests for emergency care only can be directed to [phone] at any time.[facility] Allergies Active Allergy Reactions Criticality Noted Date Comments Latex Itching,Rash Low 03/17/2011 Medications FLUoxetine (PROzac) 40 mg capsule Take 40 mg by mouth daily. Active Active Problems Problem Noted Date Diagnosed Date Hemorrhoids 06/29/2023 Social History Tobacco Use Types Packs/Day Years Used Date Smoking Tobacco: Never Smokeless Tobacco: Never Tobacco Cessation:Counseling Given: Not Answered [facility] Utilities Answer Date Recorded In the past 12 months has [facility] [employer], gas, oil, or water [employer] threatened to shut off services in your [...] your living situation today? I have a [facility] place to live 06/27/2023 Comments Unknown Sex and Gender Information Value Date Recorded Sex Assigned at Female 06/27/2023 10:37 PM NUCLEAR DESIGN ENGINEER Legal Sex Female 11:49 PM NUCLEAR DESIGN ENGINEER Gender Identity Female 06/27/2023 10:37 PM NUCLEAR DESIGN ENGINEER Sexual Orientation Straight 06/27/2023 10 :37 PM NUCLEAR DESIGN ENGINEER Last Filed Vital Signs Vital Sign Reading Time Taken Comments Blood Pressure 120/83 06/28/2023 10:24 AM NUCLEAR DESIGN ENGINEER Pulse 86 06/28/2023 10:24 AM NUCLEAR DESIGN ENGINEER Temperature 36.3 C (97.3 F) 06/28/2023 10:24 AM NUCLEAR DESIGN ENGINEER Respiratory Rate - - Oxygen Saturation - - Inhaled Oxygen Concentration - - Weight 91.2 kg (201 lb 1 oz) 06/28/2023 10:24 AM NUCLEAR DESIGN ENGINEER Height 171.4 cm (5' 7.48) 06/28/2023 10:[address] Body Mass Index 31.04 06/28/2023 10:24 AM NUCLEAR DESIGN ENGINEER Plan of Treatment Health Maintenance Due Date [...] age to complete this topic Insurance [place] [id number]
[2024-07-20] MEDS: IBUPROFEN 400 MG TABLET 800 MG PO (23:15)
[2024-07-20] MEDS: dexAMETHasone 4 MG TABLET 10 MG PO (23:16)
[2024-07-20] MEDS: BENZONATATE 100 MG CAPSULE PO (23:18)
[2024-07-20 23:20] VITALS: BP 123/85; PULSE 64; RESP 18; TEMP 37.1; O2SAT 99
== END 2024-07-21 | disposition home or self-care (01) ==
PROVIDERS: Emergency Provider Student in an Organized Health Care Education/Training Program
DX: R06.02 Shortness of breath (principal); B97.4 Respiratory syncytial virus as the cause of diseases classified elsewhere
CPT/HCPCS: 36415; 71046; 80053; 83605; 84484; 85025; 86140; 87631; 93005; 99284; 99285; A9270